=== PATIENT | female | born 1965 | race African-American/Black ===

== ENCOUNTER 2016-10-17 14:07 | Inpatient (IN) | payer SELFPAY ==
[~2016-10-17] VITALS: Ht 166.4 cm; Wt 73.5 kg
[~2016-10-17 14:07] MED LIST: ACET325T9 PO; ASPI-482 PO; HYDR25TA9 PO; LISI20TA PO; Metoprolol Tartrate PO
--- NOTE | 2016-10-17 15:24 | PHYS DOC ---
Past Medical History Past Medical History: Hypertension, Migraines, Other Additional Past Medical Histor: ENCEPHALOPATHY,KIDNEY Past Surgical History: Cholecystectomy Additional Information: 3 TO 4 CIGARETTES A DAY Alcohol Use: None Drug Use: None Adult General Chief Complaint Chief Complaint: FOOT INJURY PAIN HPI HPI Patient is a 51 year old female who presents with R foot pain, redness, swelling. Patient reports for the past 3 days she has had increasing pain in R foot. This sends shooting pains up her leg. There are two red patches on the foot as well. She denies any trauma or other inciting event. No fever. She took some ibuprofen for this with insufficient relief. She has not taken anything for it today. Patient reports one prior similar episode which resolved on its own without treatment. Review of Systems Review of Systems Constitutional: Denies fever or chills Respiratory: Denies cough or shortness of breath Cardiovascular: Denies chest pain GI: Denies abdominal pain, nausea, vomiting, or diarrhea Musculoskeletal: R foot pain, redness, swelling Neurologic: Denies headache, focal weakness or sensory changes Current Medications Current Medications Current Medications Medications (Trade) Dose Ordered Sig/Bam Start Time Stop Time Status Last Admin Dose Admin Acetaminophen/ Hydrocodone Bitart (Lortab 5/325) 2 tab 1X ONCE 10/17/16 15:30 10/17/16 15:31 DC 10/17/16 15:29 2 TAB Aspirin (Children'S Aspirin) 324 mg 1X ONCE 10/17/16 17:00 10/17/16 17:01 DC 10/17/16 17:15 324 MG Famotidine (Pepcid) 20 mg 1X ONCE 10/17/16 17:00 10/17/16 17:01 DC 10/17/16 17:15 20 MG Naproxen 500 mg 500 mg 1X ONCE 10/17/16 15:30 10/17/16 15:31 DC 10/17/16 15:30 500 MG Sodium Chloride (Iv Sodium Chloride 0.9% 1000ml Bag) 1,000 ml @ 1,000 mls/hr 1X ONCE 10/17/16 15:30 10/17/16 16:29 DC 10/17/16 15:43 1,000 MLS/HR Allergies Allergies Allergies Coded Allergies Type Severity Reaction Last Updated Verified No Known Drug Allergies 01/15/15 No Physical Exam Physical Exam Constitutional: Well developed, well nourished, no acute distress, non-toxic appearance HENT: Normocephalic, atraumatic, bilateral external ears normal Eyes: EOMI, conjunctiva normal, no discharge Neck: Normal range of motion, no stridor Cardiovascular: Heart rate normal, regular rhythm, no murmur Lungs & Thorax: Bilateral breath sounds clear to auscultation Abdomen: Bowel sounds normal, soft, non-distended, no TTP Skin: Warm, dry, no erythema, no rash Extremities: R foot mildly swollen compared to L; two patches of erythema on medial ankle and top of foot which are TTP; no bony deformity appreciated; motor function and sensation to light touch intact; 2+ DP pulse; RLE without significant swelling, no TTP in calf or thigh Neurologic: Alert and oriented X 3, no gross deficits noted Psychologic: Affect normal, judgement normal, mood normal Current Patient Data Vital Signs Vital Signs Date Time Temp Pulse Resp B/P Pulse Ox O2 Delivery O2 Flow Rate FiO2 10/17/16 17:20 60 16 144/86 96 10/17/16 16:30 Room Air 10/17/16 15:20 99.4 99.4 Lab Values Laboratory Tests Test 10/17/16 15:55 10/17/16 17:40 White Blood Count 6.1x10^3/uL (4.0-11.0) Red Blood Count 5.61x10^6/uL (3.50-5.40) H Hemoglobin 12.4g/dL (12.0-15.5) Hematocrit 39.3% (36.0-47.0) Mean Corpuscular Volume 70fL (79-100) L Mean Corpuscular Hemoglobin 22pg (25-35) L Mean Corpuscular Hemoglobin Concent 31g/dL (31-37) Red Cell Distribution Width 17.1% (11.5-14.5) H Platelet Count 263x10^3/uL (140-400) Neutrophils (%) (Auto) 57% (31-73) Lymphocytes (%) (Auto) 34% (24-48) Monocytes (%) (Auto) 8% (0-9) Eosinophils (%) (Auto) 1% (0-3) Basophils (%) (Auto) 1% (0-3) Neutrophils # (Auto) 3.5x10^3uL (1.8-7.7) Lymphocytes # (Auto) 2.1x10^3/uL (1.0-4.8) Monocytes # (Auto) 0.5x10^3/uL (0.0-1.1) Eosinophils # (Auto) 0.0x10^3/uL (0.0-0.7) Basophils # (Auto) 0.1x10^3/uL (0.0-0.2) Platelet Estimate Adequate (ADEQUATE) Polychromasia Slight Hypochromasia Mod Anisocytosis Slight Microcytosis Mod Target Cells Few Sodium Level 135mmol/L (136-145) L Potassium Level 3.5mmol/L (3.5-5.1) Chloride Level 101mmol/L (98-107) Carbon Dioxide Level 27mmol/L (21-32) Anion Gap 7 (6-14) Blood Urea Nitrogen 11mg/dL (7-20) Creatinine 0.7mg/dL (0.6-1.0) Estimated GFR (Cockcroft-Gault) 106.3 Glucose Level 92mg/dL (70-99) Lactic Acid Level 1.1mmol/L (0.4-2.0) Calcium Level 7.9mg/dL (8.5-10.1) L Total Bilirubin 0.2mg/dL (0.2-1.0) Direct Bilirubin < 0.1mg/dL (0.0-0.2) Aspartate Amino Transferase (AST) 19U/L (15-37) Alanine Aminotransferase (ALT) 17U/L (14-59) Alkaline Phosphatase 54U/L (46-116) Troponin I Quantitative 0.033ng/mL (0.000-0.055) 0.038ng/mL (0.000-0.055) Total Protein 5.3g/dL (6.4-8.2) L Albumin 2.3g/dL (3.4-5.0) L Lipase 64U/L (73-393) L Laboratory Tests 10/17/16 15:55 Laboratory Tests 10/17/16 15:55 EKG EKG EKG (my read): sinus rhythm, rate 64, LAD, IVCD, few new TWI, ST depression lateral leads; change from prior EKG Radiology/Procedures Radiology/Procedures CXR (my read): No acute abnormality LLE US: Impression: No evidence of deep venous thrombosis identified in the visualized right lower extremity venous system. X-ray L foot: IMPRESSION: No acute bony abnormality is detected. Course & Med Decision Making Course & Med Decision Making Pertinent Labs and Imaging studies reviewed. (See chart for details) Patient is 51 year old female who presents with foot pain and swelling. Possibly gout vs mild cellulitis. Patient hypotensive on arrival, which responded well to IV fluids. Foot x-ray, LLE US, labs ordered to evaluate. Initial labs largely unremarkable, imaging results as above. Right after these results came back, patient began complaining of epigastric pain radiating to her back; she denies SOB. EKG obtained, which is different than prior. Troponin , hepatic panel, lipase ordered as well. Patient given ASA, pepcid, GI cocktail , morphine. I quickly spoke with Dr. Crabtree, who kindly came right down to the ED to look at EKG and speak with patient. Per Dr. Crabtree, EKG shows new LBBB. We will admit her to hospitalist service and will trend troponin. Discussed this with patient, who reports pain significantly improved after meds. Discussed with Dr. Ni, will admit under her care for further evaluation and treatment. Dose of keflex ordered to cover for possible mild cellulitis. Dragon Disclaimer Dragon Disclaimer This electronic medical record was generated, in whole or in part, using a voice recognition dictation system. Departure Departure Impression: Primary Impression: Epigastric abdominal pain Additional Impression: EKG abnormality Disposition: ADMITTED INPATIENT Admitting Physician: Other Condition: GUARDED Referrals: SEFERINO MENDOZA (PCP) Problem Qualifiers DONELL RIOS MD Oct 17, 2016 15:24
[2016-10-17] MEDS ORDERED: HYDROCODONE/APAP 5/325MG TABLET. PO ONE (15:30)
[2016-10-17] MEDS ORDERED: IV NORMAL SALINE 1000ML BAG 1,000 ML IV ONE (15:30)
[2016-10-17] MEDS ORDERED: NAPROXEN 500 MG TABLET PO ONE (15:30)
--- NOTE | 2016-10-17 15:41 | RAD ---
Right foot, 3 views, 10/17/2016: History: Foot pain No fracture or dislocation is identified. There is mild degenerative change at the calcaneocuboid articulation. There is moderate generalized subcutaneous edema. IMPRESSION: No acute bony abnormality is detected.
[2016-10-17 16:13] LABS: BASO # 0.1 x10^3/uL (0.0-0.2); BASO % 1 % (0-3); EOS % 1 % (0-3); HEMATOCRIT 39.3 % (36.0-47.0); HEMOGLOBIN 12.4 g/dL (12.0-15.5); LYMPH # 2.1 x10^3/uL (1.0-4.8); LYMPH % 34 % (24-48); MEAN CORPUSCULAR HEMOGLOBIN 22 pg (25-35); MEAN CORPUSCULAR HGB CONC 31 g/dL (31-37); MEAN CORPUSCULAR VOLUME 70 fL (79-100); MONO % 8 % (0-9); NEUT % 57 % (31-73); PLATELET COUNT 263 x10^3/uL (140-400); RED BLOOD COUNT 5.61 x10^6/uL (3.50-5.40); RED CELL DISTRIBUTION WIDTH 17.1 % (11.5-14.5); WHITE BLOOD COUNT 6.1 x10^3/uL (4.0-11.0)
--- NOTE | 2016-10-17 16:27 | RAD ---
Examination: Ultrasound right lower extremity venous duplex History: History of right leg pain, swelling Comparison: None available Technique: Grayscale, color-flow 2-D, spectral waveform analysis of the right lower extremity venous system were performed Findings: The visualized common femoral vein, superficial femoral vein, popliteal vein demonstrate normal compression augmentation of flow. The visualized calf veins are patent. Impression: No evidence of deep venous thrombosis identified in the visualized right lower extremity venous system.
[2016-10-17 16:30] LABS: CALCIUM 7.9 mg/dL (8.5-10.1); CREATININE 0.7 mg/dL (0.6-1.0); GFR 106.3; POTASSIUM 3.5 mmol/L (3.5-5.1)
[2016-10-17 16:49] LABS: ANISOCYTOSIS SLIGHT; HYPOCHROMIA MOD; MICROCYTOSIS MOD; PLT ESTIMATE ADEQUATE (ADEQUATE); POLYCHROMASIA SLIGHT; TARGET CELLS FEW
[2016-10-17] MEDS ORDERED: ASPIRIN 81 MG TAB.CHEW PO ONE (17:00)
[2016-10-17] MEDS ORDERED: FAMOTIDINE 20 MG/2 ML VIAL IVP ONE (17:00)
--- NOTE | 2016-10-17 17:13 | EKG ---
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
[2016-10-17 17:24] LABS: ALBUMIN 2.3 g/dL (3.4-5.0); ALK PHOS 54 U/L (46-116); ALT (SGPT) 17 U/L (14-59); AST (SGOT) 19 U/L (15-37); DIRECT BILIRUBIN < 0.1 mg/dL (0.0-0.2); TOTAL BILIRUBIN 0.2 mg/dL (0.2-1.0); TOTAL PROTEIN 5.3 g/dL (6.4-8.2)
[2016-10-17] MEDS: MORPHINE SULFATE 4 MG/ML DISP.SYRIN. IV PRN (17:58)
[2016-10-17] MEDS ORDERED: LIDO:MAALOX:DONNATAL 1:1:1 15 ML SINGLE DOSE SWSW ONE (18:00)
[2016-10-17] MEDS ORDERED: ONDANSETRON PF 4 MG/2 ML VIAL. IV PRN (18:00)
[2016-10-17] MEDS ORDERED: ACETAMINOPHEN 325 MG TABLET. PO PRN ×2 (18:00→22:45)
[2016-10-17] MEDS ORDERED: CEPHALEXIN 250 MG CAPSULE PO ONE (18:00)
[2016-10-17] MEDS ORDERED: NITROGLYCERIN SUBLINGUAL 0.4 MG BOTTLE OF 25. SL PRN (18:00)
[2016-10-17 20:16] VITALS: BP 133/70
[2016-10-17] MEDS: LISINOPRIL 20 MG TABLET PO SCH (22:09)
[2016-10-17] MEDS: METOPROLOL TART IMMED RELEASE 25 MG TABLET PO SCH (22:09)
[2016-10-17 22:41] VITALS: BP 125/74
[2016-10-17] MEDS ORDERED: hydrALAZINE 20 MG/ML VIAL. IVP PRN (22:45)
[2016-10-17] MEDS ORDERED: COLCHICINE 0.6 MG TABLET PO ONE (23:00)
--- NOTE | 2016-10-17 23:32 | HP ---
ADMIT DATE: 10/17/2016 CHIEF COMPLAINT: Foot pain. HISTORY OF PRESENT ILLNESS: The patient is a 51-year-old -[place] woman, who presented with right foot pain for several days. She had noted redness and swelling in her right ankle, both medial as well as lateral aspects. This was quite painful. She had this occurrence for the past 3 days. She relates that she does have a history of pain in other foot as well. She took some ibuprofen for this, which did not really help pretty much for this. She does have a family history of gout. In the Emergency Room however, she started complaining of epigastric pain radiating all the way through to her back without any shortness of breath. She thinks that she has a history of something going on with her esophagus as she was told in the s. An EKG was obtained however and this showed changes, although nonspecific. These include a new left bundle-branch block. A decision was therefore made to admit her to the hospital to rule out MO and have Cardiology (Dr. Cisse) see her in the morning. She does have an atrial septal defect found by an echocardiogram in 2014. PAST MEDICAL HISTORY: Septal defect as above, hypertension, suspected arthrosclerotic renal artery stenosis, and GERD. FAMILY HISTORY: Multiple family members with gout. SOCIAL HISTORY: Lives by herself. Smokes about 4-5 cigarettes a day, weaning down from a 6-joqc-s-day history. Denies any drug or alcohol use. ALLERGIES: No known drug allergies. MEDICATIONS: MAR reconciled with home medications. REVIEW OF SYSTEMS: Positive as per HPI. PHYSICAL EXAMINATION: VITAL SIGNS: From today, show blood pressure of 133/70, heart rate of 60, and respiratory rate 16. She is afebrile. GENERAL: This is a well-nourished 51-year-old -[place] woman, alert and oriented, in no acute distress. HEENT: Shows no scleral icterus. NECK: Supple without any lymphadenopathy. LUNGS: Clear to auscultation bilaterally. CARDIOVASCULAR: Regular rate and rhythm. ABDOMEN: Has positive bowel sounds, soft, minimal tenderness in the subxiphoid/epigastric area. No organomegaly or masses appreciated. EXTREMITIES: Show no edema and no clubbing. There is erythema on the medial as well as lateral side of her right malleolus, worse on the medial side. Tenderness to touch. SKIN: Warm, soft, and dry. LABORATORY DATA: CBC with a WBC of 6.1, hemoglobin 12.6, and platelets of 263. Of note, MCV is 70. Chemistries with a BUN and creatinine of 11 and 0.7, normal electrolytes. LFTs within normal. Troponin at 0.033 and 0.038. RADIOGRAPHIC IMAGING: Chest x-ray from the Emergency Room reviewed by myself shows no acute cardiothoracic abnormalities. ASSESSMENT AND PLAN: The patient is a 51-year-old -[place] woman with right ankle pain, signs and symptoms consistent with gout. We will obtain uric acid levels in the morning. I will start her on colchicine for the acute flare. The patient does have EKG changes, which prompted the admission tonight. We will obtain serial enzymes and EKGs. Dr. 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 The patient does have a history of gastroesophageal reflux disease. We will start H2 blockers tonight. She has gotten significant doses of narcotics through the Emergency Room and is a bit sleepy currently, but at least, the pain has resolved. We will monitor further symptoms. We will obtain additional labs including lipid profile to risk stratify her for cardiac disease. SAVI ANGELES MD DR: BJORN/nts JOB#: [id number] / [id number] MAYRA
[2016-10-18] VITALS (18 sets, daily range): BP systolic 105–160; BP diastolic 61–84
[2016-10-18] MEDS: FAMOTIDINE 20 MG TABLET. PO SCH ×3 (07:10→20:20)
[2016-10-18 07:56] LABS: CALCIUM 8.1 mg/dL (8.5-10.1); CREATININE 0.8 mg/dL (0.6-1.0); GFR 91.1; URIC ACID 4.7 mg/dL (2.6-6.0)
[2016-10-18 07:58] LABS: BASO % 1 % (0-3); EOS % 2 % (0-3); HEMATOCRIT 36.8 % (36.0-47.0); HEMOGLOBIN 11.5 g/dL (12.0-15.5); LYMPH % 41 % (24-48); MEAN CORPUSCULAR HEMOGLOBIN 22 pg (25-35); MEAN CORPUSCULAR HGB CONC 31 g/dL (31-37); MEAN CORPUSCULAR VOLUME 71 fL (79-100); MONO % 11 % (0-9); NEUT % 46 % (31-73); PLATELET COUNT 245 x10^3/uL (140-400); RED CELL DISTRIBUTION WIDTH 17.7 % (11.5-14.5); WHITE BLOOD COUNT 4.8 x10^3/uL (4.0-11.0)
[2016-10-18 08:00] LABS: CHOLESTEROL/HDL RATIO 6.9
--- NOTE | 2016-10-18 08:54 | RAD ---
Indication: Epigastric pain. Hypertension. Technique: Upright portable chest radiograph was obtained. No comparison is available. Findings: The lungs are clear. The cardiopulmonary silhouette is within normal limits. The bony structures are intact. Impression: No active pulmonary disease.
[2016-10-18] MEDS: ASPIRIN ENTERIC COATED 81 MG TABLET.DR. PO SCH (08:57)
[2016-10-18] MEDS: METOPROLOL TART IMMED RELEASE 25 MG TABLET PO SCH ×2 (08:57→20:40)
[2016-10-18] MEDS: LISINOPRIL 20 MG TABLET PO SCH ×2 (08:57→20:21)
[2016-10-18] MEDS: HYDROCHLOROTHIAZIDE 25 MG TABLET PO SCH (08:57)
[2016-10-18] MEDS: COLCHICINE 0.6 MG TABLET PO SCH (08:57)
[2016-10-18] MEDS: MORPHINE SULFATE 4 MG/ML DISP.SYRIN. IV PRN (08:58)
--- NOTE | 2016-10-18 10:12 | PDOC ---
PROGRESS NOTES Chief Complaint Chief Complaint CC: Foot pain A/P Right foot pain, KEG changes? LBBB Mild elevation of troponin HTN Plan angiogram today by Dr Cisse, no active chest pain colchicine HTN stable AC per cardiology, d/w RN Labs reviwed, Vitals Vitals Vital Signs Date Time Temp Pulse Resp B/P Pulse Ox O2 Delivery O2 Flow Rate FiO2 10/18/16 09:58 16 100 Room Air 10/18/16 08:57 54 123/69 10/18/16 07:00 98.4 98.4 Physical Exam General: Alert, Oriented X3 Heart: Normal S1, Normal S2 Lungs: Clear Abdomen: Normal bowel sounds Extremities: No clubbing Labs LABS Laboratory Tests Test 10/17/16 15:55 10/17/16 17:40 10/18/16 00:30 10/18/16 07:05 White Blood Count 6.1x10^3/uL (4.0-11.0) 4.8x10^3/uL (4.0-11.0) Red Blood Count 5.61x10^6/uL (3.50-5.40) 5.20x10^6/uL (3.50-5.40) Hemoglobin 12.4g/dL (12.0-15.5) 11.5g/dL (12.0-15.5) Hematocrit 39.3% (36.0-47.0) 36.8% (36.0-47.0) Mean Corpuscular Volume 70fL (79-100) 71fL (79-100) Mean Corpuscular Hemoglobin 22pg (25-35) 22pg (25-35) Mean Corpuscular Hemoglobin Concent 31g/dL (31-37) 31g/dL (31-37) Red Cell Distribution Width 17.1% (11.5-14.5) 17.7% (11.5-14.5) Platelet Count 263x10^3/uL (140-400) 245x10^3/uL (140-400) Neutrophils (%) (Auto) 57% (31-73) 46% (31-73) Lymphocytes (%) (Auto) 34% (24-48) 41% (24-48) Monocytes (%) (Auto) 8% (0-9) 11% (0-9) Eosinophils (%) (Auto) 1% (0-3) 2% (0-3) Basophils (%) (Auto) 1% (0-3) 1% (0-3) Neutrophils # (Auto) 3.5x10^3uL (1.8-7.7) 2.2x10^3uL (1.8-7.7) Lymphocytes # (Auto) 2.1x10^3/uL (1.0-4.8) 2.0x10^3/uL (1.0-4.8) Monocytes # (Auto) 0.5x10^3/uL (0.0-1.1) 0.5x10^3/uL (0.0-1.1) Eosinophils # (Auto) 0.0x10^3/uL (0.0-0.7) 0.1x10^3/uL (0.0-0.7) Basophils # (Auto) 0.1x10^3/uL (0.0-0.2) 0.0x10^3/uL (0.0-0.2) Platelet Estimate Adequate (ADEQUATE) Polychromasia Slight Hypochromasia Mod Anisocytosis Slight Microcytosis Mod Target Cells Few Sodium Level 135mmol/L (136-145) 140mmol/L (136-145) Potassium Level 3.5mmol/L (3.5-5.1) 4.0mmol/L (3.5-5.1) Chloride Level 101mmol/L (98-107) 106mmol/L (98-107) Carbon Dioxide Level 27mmol/L (21-32) 28mmol/L (21-32) Anion Gap 7 (6-14) 6 (6-14) Blood Urea Nitrogen 11mg/dL (7-20) 9mg/dL (7-20) Creatinine 0.7mg/dL (0.6-1.0) 0.8mg/dL (0.6-1.0) Estimated GFR (Cockcroft-Gault) 106.3 91.1 Glucose Level 92mg/dL (70-99) 80mg/dL (70-99) Lactic Acid Level 1.1mmol/L (0.4-2.0) Calcium Level 7.9mg/dL (8.5-10.1) 8.1mg/dL (8.5-10.1) Total Bilirubin 0.2mg/dL (0.2-1.0) Direct Bilirubin < 0.1mg/dL (0.0-0.2) Aspartate Amino Transf (AST/SGOT) 19U/L (15-37) Alanine Aminotransferase (ALT/SGPT) 17U/L (14-59) Alkaline Phosphatase 54U/L (46-116) Troponin I Quantitative 0.033ng/mL (0.000-0.055) 0.038ng/mL (0.000-0.055) 0.052ng/mL (0.000-0.055) 0.044ng/mL (0.000-0.055) Total Protein 5.3g/dL (6.4-8.2) Albumin 2.3g/dL (3.4-5.0) Lipase 64U/L (73-393) Uric Acid 4.7mg/dL (2.6-6.0) Triglycerides Level 103mg/dL (0-150) Cholesterol Level 144mg/dL (0-200) LDL Cholesterol, Calculated 102mg/dL (0-100) VLDL Cholesterol, Calculated 21mg/dL (0-40) HDL Cholesterol 21mg/dL (40-60) Cholesterol/HDL Ratio 6.9 Assessment and Plan Assessmemt and Plan Problems Medical Problems: (1) EKG abnormality Status: Acute (2) Epigastric abdominal pain Status: Acute Problems: Comment Review of Relevant I have reviewed the following items kenji (where applicable) has been applied. Labs Laboratory Tests Test 10/17/16 15:55 10/17/16 17:40 10/18/16 00:30 10/18/16 07:05 White Blood Count 6.1x10^3/uL (4.0-11.0) 4.8x10^3/uL (4.0-11.0) Red Blood Count 5.61x10^6/uL (3.50-5.40) 5.20x10^6/uL (3.50-5.40) Hemoglobin 12.4g/dL (12.0-15.5) 11.5g/dL (12.0-15.5) Hematocrit 39.3% (36.0-47.0) 36.8% (36.0-47.0) Mean Corpuscular Volume 70fL (79-100) 71fL (79-100) Mean Corpuscular Hemoglobin 22pg (25-35) 22pg (25-35) Mean Corpuscular Hemoglobin Concent 31g/dL (31-37) 31g/dL (31-37) Red Cell Distribution Width 17.1% (11.5-14.5) 17.7% (11.5-14.5) Platelet Count 263x10^3/uL (140-400) 245x10^3/uL (140-400) Neutrophils (%) (Auto) 57% (31-73) 46% (31-73) Lymphocytes (%) (Auto) 34% (24-48) 41% (24-48) Monocytes (%) (Auto) 8% (0-9) 11% (0-9) Eosinophils (%) (Auto) 1% (0-3) 2% (0-3) Basophils (%) (Auto) 1% (0-3) 1% (0-3) Neutrophils # (Auto) 3.5x10^3uL (1.8-7.7) 2.2x10^3uL (1.8-7.7) Lymphocytes # (Auto) 2.1x10^3/uL (1.0-4.8) 2.0x10^3/uL (1.0-4.8) Monocytes # (Auto) 0.5x10^3/uL (0.0-1.1) 0.5x10^3/uL (0.0-1.1) Eosinophils # (Auto) 0.0x10^3/uL (0.0-0.7) 0.1x10^3/uL (0.0-0.7) Basophils # (Auto) 0.1x10^3/uL (0.0-0.2) 0.0x10^3/uL (0.0-0.2) Platelet Estimate Adequate (ADEQUATE) Polychromasia Slight Hypochromasia Mod Anisocytosis Slight Microcytosis Mod Target Cells Few Sodium Level 135mmol/L (136-145) 140mmol/L (136-145) Potassium Level 3.5mmol/L (3.5-5.1) 4.0mmol/L (3.5-5.1) Chloride Level 101mmol/L (98-107) 106mmol/L (98-107) Carbon Dioxide Level 27mmol/L (21-32) 28mmol/L (21-32) Anion Gap 7 (6-14) 6 (6-14) Blood Urea Nitrogen 11mg/dL (7-20) 9mg/dL (7-20) Creatinine 0.7mg/dL (0.6-1.0) 0.8mg/dL (0.6-1.0) Estimated GFR (Cockcroft-Gault) 106.3 91.1 Glucose Level 92mg/dL (70-99) 80mg/dL (70-99) Lactic Acid Level 1.1mmol/L (0.4-2.0) Calcium Level 7.9mg/dL (8.5-10.1) 8.1mg/dL (8.5-10.1) Total Bilirubin 0.2mg/dL (0.2-1.0) Direct Bilirubin < 0.1mg/dL (0.0-0.2) Aspartate Amino Transf (AST/SGOT) 19U/L (15-37) Alanine Aminotransferase (ALT/SGPT) 17U/L (14-59) Alkaline Phosphatase 54U/L (46-116) Troponin I Quantitative 0.033ng/mL (0.000-0.055) 0.038ng/mL (0.000-0.055) 0.052ng/mL (0.000-0.055) 0.044ng/mL (0.000-0.055) Total Protein 5.3g/dL (6.4-8.2) Albumin 2.3g/dL (3.4-5.0) Lipase 64U/L (73-393) Uric Acid 4.7mg/dL (2.6-6.0) Triglycerides Level 103mg/dL (0-150) Cholesterol Level 144mg/dL (0-200) LDL Cholesterol, Calculated 102mg/dL (0-100) VLDL Cholesterol, Calculated 21mg/dL (0-40) HDL Cholesterol 21mg/dL (40-60) Cholesterol/HDL Ratio 6.9 Laboratory Tests Test 10/17/16 15:55 10/17/16 17:40 10/18/16 00:30 10/18/16 07:05 White Blood Count 6.1x10^3/uL (4.0-11.0) 4.8x10^3/uL (4.0-11.0) Red Blood Count 5.61x10^6/uL (3.50-5.40) 5.20x10^6/uL (3.50-5.40) Hemoglobin 12.4g/dL (12.0-15.5) 11.5g/dL (12.0-15.5) Hematocrit 39.3% (36.0-47.0) 36.8% (36.0-47.0) Mean Corpuscular Volume 70fL (79-100) 71fL (79-100) Mean Corpuscular Hemoglobin 22pg (25-35) 22pg (25-35) Mean Corpuscular Hemoglobin Concent 31g/dL (31-37) 31g/dL (31-37) Red Cell Distribution Width 17.1% (11.5-14.5) 17.7% (11.5-14.5) Platelet Count 263x10^3/uL (140-400) 245x10^3/uL (140-400) Neutrophils (%) (Auto) 57% (31-73) 46% (31-73) Lymphocytes (%) (Auto) 34% (24-48) 41% (24-48) Monocytes (%) (Auto) 8% (0-9) 11% (0-9) Eosinophils (%) (Auto) 1% (0-3) 2% (0-3) Basophils (%) (Auto) 1% (0-3) 1% (0-3) Neutrophils # (Auto) 3.5x10^3uL (1.8-7.7) 2.2x10^3uL (1.8-7.7) Lymphocytes # (Auto) 2.1x10^3/uL (1.0-4.8) 2.0x10^3/uL (1.0-4.8) Monocytes # (Auto) 0.5x10^3/uL (0.0-1.1) 0.5x10^3/uL (0.0-1.1) Eosinophils # (Auto) 0.0x10^3/uL (0.0-0.7) 0.1x10^3/uL (0.0-0.7) Basophils # (Auto) 0.1x10^3/uL (0.0-0.2) 0.0x10^3/uL (0.0-0.2) Platelet Estimate Adequate (ADEQUATE) Polychromasia Slight Hypochromasia Mod Anisocytosis Slight Microcytosis Mod Target Cells Few Sodium Level 135mmol/L (136-145) 140mmol/L (136-145) Potassium Level 3.5mmol/L (3.5-5.1) 4.0mmol/L (3.5-5.1) Chloride Level 101mmol/L (98-107) 106mmol/L (98-107) Carbon Dioxide Level 27mmol/L (21-32) 28mmol/L (21-32) Anion Gap 7 (6-14) 6 (6-14) Blood Urea Nitrogen 11mg/dL (7-20) 9mg/dL (7-20) Creatinine 0.7mg/dL (0.6-1.0) 0.8mg/dL (0.6-1.0) Estimated GFR (Cockcroft-Gault) 106.3 91.1 Glucose Level 92mg/dL (70-99) 80mg/dL (70-99) Lactic Acid Level 1.1mmol/L (0.4-2.0) Calcium Level 7.9mg/dL (8.5-10.1) 8.1mg/dL (8.5-10.1) Total Bilirubin 0.2mg/dL (0.2-1.0) Direct Bilirubin < 0.1mg/dL (0.0-0.2) Aspartate Amino Transf (AST/SGOT) 19U/L (15-37) Alanine Aminotransferase (ALT/SGPT) 17U/L (14-59) Alkaline Phosphatase 54U/L (46-116) Troponin I Quantitative 0.033ng/mL (0.000-0.055) 0.038ng/mL (0.000-0.055) 0.052ng/mL (0.000-0.055) 0.044ng/mL (0.000-0.055) Total Protein 5.3g/dL (6.4-8.2) Albumin 2.3g/dL (3.4-5.0) Lipase 64U/L (73-393) Uric Acid 4.7mg/dL (2.6-6.0) Triglycerides Level 103mg/dL (0-150) Cholesterol Level 144mg/dL (0-200) LDL Cholesterol, Calculated 102mg/dL (0-100) VLDL Cholesterol, Calculated 21mg/dL (0-40) HDL Cholesterol 21mg/dL (40-60) Cholesterol/HDL Ratio 6.9 Medications Current Medications Acetaminophen/ Hydrocodone Bitart (Lortab 5/325) 2 tab 1X ONCE PO Last administered on 10/17/16 15:29; Start 10/17/16 at 15:30; Stop 10/17/16 at 15:31 ; Status DC Naproxen 500 mg 500 mg 1X ONCE PO Last administered on 10/17/16 15:30; Start 10/17/16 at 15:30; Stop 10/17/16 at 15:31; Status DC Sodium Chloride (Iv Sodium Chloride 0.9% 1000ml Bag) 1,000 ml @ 1,000 mls/hr 1X ONCE IV Last administered on 10/17/16 15:43; Start 10/17/16 at 15:30; Stop 10/17/16 at 16:29; Status DC Famotidine (Pepcid) 20 mg 1X ONCE IVP Last administered on 10/17/16 17:15; Start 10/17/16 at 17:00; Stop 10/17/16 at 17:01; Status DC Aspirin (Children'S Aspirin) 324 mg 1X ONCE PO Last administered on 10/17/16 17:15; Start 10/17/16 at 17:00; Stop 10/17/16 at 17:01; Status DC Ondansetron HCl (Zofran) 4 mg PRN Q8HRS PRN IV NAUSEA/VOMITING Last administered on 10/18/16 08:59; Start 10/17/16 at 18:00; Stop 10/18/16 at 17:59 Morphine Sulfate 4 mg PRN Q2HR PRN IV PAIN Last administered on 10/18/16 08:58 ; Start 10/17/16 at 18:00; Stop 10/18/16 at 17:59 Acetaminophen (Tylenol) 650 mg PRN Q4HRS PRN PO FEVER; Start 10/17/16 at 18:00 ; Stop 10/17/16 at 22:45; Status DC Nitroglycerin (Nitrostat) 0.4 mg PRN Q5MIN PRN SL CHEST PAIN; Start 10/17/16 at 18:00; Stop 10/18/16 at 17:59 Multi-Ingredient Mouthwash/Gargle (Gi Cocktail Single Dose) 15 ml 1X ONCE SWSW Last administered on 10/17/16 17:59; Start 10/17/16 at 18:00; Stop 10/17/16 at 18:01; Status DC Cephalexin HCl (Keflex) 500 mg 1X ONCE PO Last administered on 10/17/16 18:49 ; Start 10/17/16 at 18:00; Stop 10/17/16 at 18:01; Status DC Lisinopril (Prinivil) 20 mg BID PO Last administered on 10/18/16 08:57; Start 10/17/16 at 23:00 Metoprolol Tartrate (Lopressor) 25 mg BID PO Last administered on 10/18/16 08: 57; Start 10/17/16 at 23:00 Acetaminophen (Tylenol) 650 mg PRN Q4HRS PRN PO HEADACHE; Start 10/17/16 at 22: 45 Aspirin (Ecotrin) 81 mg DAILY PO Last administered on 10/18/16 08:57; Start at 09:00 Hydrochlorothiazide (Hydrodiuril) 25 mg DAILY PO Last administered on 08:57; Start 10/18/16 at 09:00 Famotidine (Pepcid) 20 mg BID PO Last administered on 10/18/16 08:57; Start at 23:00 Hydralazine HCl (Apresoline) 10 mg PRN Q4HRS PRN IVP ELEVATED BP, SEE COMMENTS ; Start 10/17/16 at 22:45 Colchicine (Colcrys) 0.6 mg DAILY PO Last administered on 10/18/16 08:57; Start 10/18/16 at 09:00 Colchicine (Colcrys) 0.6 mg 1X ONCE PO ; Start 10/17/16 at 23:00; Stop at 23:01; Status DC Active Scripts Active Tylenol (Acetaminophen) 325 Mg Tablet 325 Mg PO PRN Q6-8HRS PRN [Metoprolol Tartrate] 25 MG Tablet 25 Mg PO BID 30 Days Prinivil (Lisinopril) 20 Mg Tablet 20 Mg PO BID 30 Days Reported Aspir 81 (Aspirin) 81 Mg Tablet. 1 Tab PO DAILY Hydrochlorothiazide Tablet (Hydrochlorothiazide) 25 Mg Tablet 1 Tab PO DAILY Vitals/I & O Vital Sign - Last 24 Hours 10/17/16 10/17/16 10/17/16 10/17/16 14:19 15:20 15:29 15:30 Temp 97.6 99.4 97.6 99.4 Pulse 75 75 66 Resp 18 20 16 16 B/P 85/51 87/50 85/51 Pulse Ox 97 98 97 O2 Delivery Room Air Room Air Room Air 10/17/16 10/17/16 10/17/16 10/17/16 15:53 15:55 16:20 16:30 Pulse 61 57 55 64 Resp 16 16 B/P 79/53 81/51 82/51 136/83 Pulse Ox 97 96 94 94 O2 Delivery Room Air Room Air Room Air Room Air 10/17/16 10/17/16 10/17/16 10/17/16 17:20 17:58 19:59 20:16 Temp 97.8 97.8 Pulse 60 60 Resp 16 16 B/P 144/86 133/70 Pulse Ox 96 99 O2 Delivery Room Air Room Air 10/17/16 10/17/16 10/17/16 10/18/16 22:09 22:09 22:41 02:34 Temp 97.6 97.9 97.6 97.9 Pulse 60 60 56 50 Resp 16 B/P 133/70 133/70 125/74 121/66 Pulse Ox 100 100 O2 Delivery Room Air Room Air 10/18/16 10/18/16 10/18/16 10/18/16 07:00 08:00 08:57 08:57 Temp 98.4 98.4 Pulse 54 54 54 B/P 123/69 123/69 123/69 Pulse Ox 100 O2 Delivery Room Air Room Air 10/18/16 10/18/16 08:58 09:58 Resp 18 16 Pulse Ox 100 100 O2 Delivery Room Air Room Air Intake and Output 10/17/16 10/17/16 10/18/16 15:00 23:00 07:00 Intake Total 1000 ml Balance 1000 ml ELKE BOWDEN MD Oct 18, 2016 10:12
--- NOTE | 2016-10-18 11:41 | EKG ---
[facility] [address] [place] [address] Test Date: 2016-10-18 Test Time: 10:34:43 Pat Name: COCO CHIANG Department: Room: 269 1 Gender: F Research Fellow: : 1965 Requested By: CHICHO JOHNSON Order Number: [id number] Reading MD: Paloma Alcantar Measurements Intervals [place] Rate: 46 P: 41 TX: 216 QRS: -15 QRSD: 144 T: 121 QT: 576 QTc: 505 Interpretive Statements SINUS BRADYCARDIA LEFTWARD AXIS NON SPECIFIC INTRAVENTRICULAR BLOCK INVERTED T WAVES CONSIDER MYOCARDIAL ISCHEMIA ABNORMAL ECG Electronically Signed On 10-19-2016 15:10:49 CDT by Paloma Alcantar
[2016-10-18] MEDS ORDERED: IOHEXOL 300 MG/ML 100ML VIAL. ONE (12:31)
[2016-10-18] MEDS ORDERED: LIDOCAINE 2% 20 ML VIAL. ONE ×2 (12:31→13:15)
--- NOTE | 2016-10-18 12:53 | PDOC2 ---
CONSULT Date of Consult Date of Consult DATE: 10/18/16 TIME: 12:47 Reason for Consult Reason for Consult: Chest pain Identification/Chief Complaint Chief Complaint Chest pain History of Present Illness Reason for Visit: Pt is a pleasant 51 y o Lady that has a rate dependant LBBB and an aneurism of the atrial septum. She comes in with ankle pain but then started to complain about L sided chest pains. The EKG show a LBBB and the troponin is 0.052. The pt continues to have chest pains now. Past Medical History Cardiovascular: HTN Pulmonary: No pertinent hx GI: No pertinent hx Heme/Onc: No pertinent hx Hepatobiliary: No pertinent hx Psych: No pertinent hx Rheumatologic: No pertinent hx Infectious disease: No pertinent hx Renal/: No pertinent hx Endocrine: No pertinent hx Past Surgical History Past Surgical History: Cholecystectomy Family History Family History: Diabetes, Heart Disease, Hypertension, Other Social History ALCOHOL: occassional Drugs: None, Other Current Problem List Problem List Problems Medical Problems: (1) EKG abnormality Status: Acute (2) Epigastric abdominal pain Status: Acute Current Medications Current Medications Current Medications Acetaminophen/ Hydrocodone Bitart (Lortab 5/325) 2 tab 1X ONCE PO Last administered on 10/17/16 15:29; Start 10/17/16 at 15:30; Stop 10/17/16 at 15:31 ; Status DC Naproxen 500 mg 500 mg 1X ONCE PO Last administered on 10/17/16 15:30; Start 10/17/16 at 15:30; Stop 10/17/16 at 15:31; Status DC Sodium Chloride (Iv Sodium Chloride 0.9% 1000ml Bag) 1,000 ml @ 1,000 mls/hr 1X ONCE IV Last administered on 10/17/16 15:43; Start 10/17/16 at 15:30; Stop 10/17/16 at 16:29; Status DC Famotidine (Pepcid) 20 mg 1X ONCE IVP Last administered on 10/17/16 17:15; Start 10/17/16 at 17:00; Stop 10/17/16 at 17:01; Status DC Aspirin (Children'S Aspirin) 324 mg 1X ONCE PO Last administered on 10/17/16 17:15; Start 10/17/16 at 17:00; Stop 10/17/16 at 17:01; Status DC Ondansetron HCl (Zofran) 4 mg PRN Q8HRS PRN IV NAUSEA/VOMITING Last administered on 10/18/16 08:59; Start 10/17/16 at 18:00; Stop 10/18/16 at 17:59 Morphine Sulfate 4 mg PRN Q2HR PRN IV PAIN Last administered on 10/18/16 08:58 ; Start 10/17/16 at 18:00; Stop 10/18/16 at 17:59 Acetaminophen (Tylenol) 650 mg PRN Q4HRS PRN PO FEVER; Start 10/17/16 at 18:00 ; Stop 10/17/16 at 22:45; Status DC Nitroglycerin (Nitrostat) 0.4 mg PRN Q5MIN PRN SL CHEST PAIN; Start 10/17/16 at 18:00; Stop 10/18/16 at 17:59 Multi-Ingredient Mouthwash/Gargle (Gi Cocktail Single Dose) 15 ml 1X ONCE SWSW Last administered on 10/17/16 17:59; Start 10/17/16 at 18:00; Stop 10/17/16 at 18:01; Status DC Cephalexin HCl (Keflex) 500 mg 1X ONCE PO Last administered on 10/17/16 18:49 ; Start 10/17/16 at 18:00; Stop 10/17/16 at 18:01; Status DC Lisinopril (Prinivil) 20 mg BID PO Last administered on 10/18/16 08:57; Start 10/17/16 at 23:00 Metoprolol Tartrate (Lopressor) 25 mg BID PO Last administered on 10/18/16 08: 57; Start 10/17/16 at 23:00 Acetaminophen (Tylenol) 650 mg PRN Q4HRS PRN PO HEADACHE; Start 10/17/16 at 22: 45 Aspirin (Ecotrin) 81 mg DAILY PO Last administered on 10/18/16 08:57; Start at 09:00 Hydrochlorothiazide (Hydrodiuril) 25 mg DAILY PO Last administered on 08:57; Start 10/18/16 at 09:00 Famotidine (Pepcid) 20 mg BID PO Last administered on 10/18/16 08:57; Start at 23:00 Hydralazine HCl (Apresoline) 10 mg PRN Q4HRS PRN IVP ELEVATED BP, SEE COMMENTS ; Start 10/17/16 at 22:45 Colchicine (Colcrys) 0.6 mg DAILY PO Last administered on 10/18/16t 08:57; Start 10/18/16 at 09:00 Colchicine 0.6 mg 0.6 mg 1X ONCE PO ; Start 10/17/16 at 23:00; Stop 10/17/16 at 23:01; Status DC Heparin Sodium/ Sodium Chloride 1,000 ml @ As Directed STK-MED ONCE .ROUTE ; Start 10/18/16 at 12:30; Stop 10/18/16 at 12:31; Status DC Iohexol (Omnipaque 300 Mg/ml) 100 ml STK-MED ONCE .ROUTE ; Start 10/18/16 at 12: 31; Stop 10/18/16 at 12:32; Status DC Lidocaine HCl 20 ml STK-MED ONCE .ROUTE ; Start 10/18/16 at 12:31; Stop at 12:32; Status DC Active Scripts Active Tylenol (Acetaminophen) 325 Mg Tablet 325 Mg PO PRN Q6-8HRS PRN [Metoprolol Tartrate] 25 MG Tablet 25 Mg PO BID 30 Days Prinivil (Lisinopril) 20 Mg Tablet 20 Mg PO BID 30 Days Reported Aspir 81 (Aspirin) 81 Mg Tablet. 1 Tab PO DAILY Hydrochlorothiazide Tablet (Hydrochlorothiazide) 25 Mg Tablet 1 Tab PO DAILY Allergies Allergies: Coded Allergies: No Known Drug Allergies (Unverified , 01/15/15) Physical Exam General: Alert, Oriented X3, Cooperative HEENT: PERRLA Lungs: Clear to auscultation Heart: Regular rate, Normal S1, Normal S2 Abdomen: Normal bowel sounds, Soft Extremities: No edema Vitals VITALS Vital Signs Date Time Temp Pulse Resp B/P Pulse Ox O2 Delivery O2 Flow Rate FiO2 10/18/16 11:00 98.3 49 18 112/69 100 Room Air 98.3 Labs Labs Laboratory Tests Test 10/17/16 15:55 10/17/16 17:40 10/18/16 00:30 10/18/16 07:05 White Blood Count 6.1x10^3/uL (4.0-11.0) 4.8x10^3/uL (4.0-11.0) Red Blood Count 5.61x10^6/uL (3.50-5.40) 5.20x10^6/uL (3.50-5.40) Hemoglobin 12.4g/dL (12.0-15.5) 11.5g/dL (12.0-15.5) Hematocrit 39.3% (36.0-47.0) 36.8% (36.0-47.0) Mean Corpuscular Volume 70fL (79-100) 71fL (79-100) Mean Corpuscular Hemoglobin 22pg (25-35) 22pg (25-35) Mean Corpuscular Hemoglobin Concent 31g/dL (31-37) 31g/dL (31-37) Red Cell Distribution Width 17.1% (11.5-14.5) 17.7% (11.5-14.5) Platelet Count 263x10^3/uL (140-400) 245x10^3/uL (140-400) Neutrophils (%) (Auto) 57% (31-73) 46% (31-73) Lymphocytes (%) (Auto) 34% (24-48) 41% (24-48) Monocytes (%) (Auto) 8% (0-9) 11% (0-9) Eosinophils (%) (Auto) 1% (0-3) 2% (0-3) Basophils (%) (Auto) 1% (0-3) 1% (0-3) Neutrophils # (Auto) 3.5x10^3uL (1.8-7.7) 2.2x10^3uL (1.8-7.7) Lymphocytes # (Auto) 2.1x10^3/uL (1.0-4.8) 2.0x10^3/uL (1.0-4.8) Monocytes # (Auto) 0.5x10^3/uL (0.0-1.1) 0.5x10^3/uL (0.0-1.1) Eosinophils # (Auto) 0.0x10^3/uL (0.0-0.7) 0.1x10^3/uL (0.0-0.7) Basophils # (Auto) 0.1x10^3/uL (0.0-0.2) 0.0x10^3/uL (0.0-0.2) Platelet Estimate Adequate (ADEQUATE) Polychromasia Slight Hypochromasia Mod Anisocytosis Slight Microcytosis Mod Target Cells Few Sodium Level 135mmol/L (136-145) 140mmol/L (136-145) Potassium Level 3.5mmol/L (3.5-5.1) 4.0mmol/L (3.5-5.1) Chloride Level 101mmol/L (98-107) 106mmol/L (98-107) Carbon Dioxide Level 27mmol/L (21-32) 28mmol/L (21-32) Anion Gap 7 (6-14) 6 (6-14) Blood Urea Nitrogen 11mg/dL (7-20) 9mg/dL (7-20) Creatinine 0.7mg/dL (0.6-1.0) 0.8mg/dL (0.6-1.0) Estimated GFR (Cockcroft-Gault) 106.3 91.1 Glucose Level 92mg/dL (70-99) 80mg/dL (70-99) Lactic Acid Level 1.1mmol/L (0.4-2.0) Calcium Level 7.9mg/dL (8.5-10.1) 8.1mg/dL (8.5-10.1) Total Bilirubin 0.2mg/dL (0.2-1.0) Direct Bilirubin < 0.1mg/dL (0.0-0.2) Aspartate Amino Transf (AST/SGOT) 19U/L (15-37) Alanine Aminotransferase (ALT/SGPT) 17U/L (14-59) Alkaline Phosphatase 54U/L (46-116) Troponin I Quantitative 0.033ng/mL (0.000-0.055) 0.038ng/mL (0.000-0.055) 0.052ng/mL (0.000-0.055) 0.044ng/mL (0.000-0.055) Total Protein 5.3g/dL (6.4-8.2) Albumin 2.3g/dL (3.4-5.0) Lipase 64U/L (73-393) Uric Acid 4.7mg/dL (2.6-6.0) Triglycerides Level 103mg/dL (0-150) Cholesterol Level 144mg/dL (0-200) LDL Cholesterol, Calculated 102mg/dL (0-100) VLDL Cholesterol, Calculated 21mg/dL (0-40) HDL Cholesterol 21mg/dL (40-60) Cholesterol/HDL Ratio 6.9 Laboratory Tests Test 10/17/16 15:55 10/17/16 17:40 10/18/16 00:30 10/18/16 07:05 White Blood Count 6.1x10^3/uL (4.0-11.0) 4.8x10^3/uL (4.0-11.0) Red Blood Count 5.61x10^6/uL (3.50-5.40) 5.20x10^6/uL (3.50-5.40) Hemoglobin 12.4g/dL (12.0-15.5) 11.5g/dL (12.0-15.5) Hematocrit 39.3% (36.0-47.0) 36.8% (36.0-47.0) Mean Corpuscular Volume 70fL (79-100) 71fL (79-100) Mean Corpuscular Hemoglobin 22pg (25-35) 22pg (25-35) Mean Corpuscular Hemoglobin Concent 31g/dL (31-37) 31g/dL (31-37) Red Cell Distribution Width 17.1% (11.5-14.5) 17.7% (11.5-14.5) Platelet Count 263x10^3/uL (140-400) 245x10^3/uL (140-400) Neutrophils (%) (Auto) 57% (31-73) 46% (31-73) Lymphocytes (%) (Auto) 34% (24-48) 41% (24-48) Monocytes (%) (Auto) 8% (0-9) 11% (0-9) Eosinophils (%) (Auto) 1% (0-3) 2% (0-3) Basophils (%) (Auto) 1% (0-3) 1% (0-3) Neutrophils # (Auto) 3.5x10^3uL (1.8-7.7) 2.2x10^3uL (1.8-7.7) Lymphocytes # (Auto) 2.1x10^3/uL (1.0-4.8) 2.0x10^3/uL (1.0-4.8) Monocytes # (Auto) 0.5x10^3/uL (0.0-1.1) 0.5x10^3/uL (0.0-1.1) Eosinophils # (Auto) 0.0x10^3/uL (0.0-0.7) 0.1x10^3/uL (0.0-0.7) Basophils # (Auto) 0.1x10^3/uL (0.0-0.2) 0.0x10^3/uL (0.0-0.2) Platelet Estimate Adequate (ADEQUATE) Polychromasia Slight Hypochromasia Mod Anisocytosis Slight Microcytosis Mod Target Cells Few Sodium Level 135mmol/L (136-145) 140mmol/L (136-145) Potassium Level 3.5mmol/L (3.5-5.1) 4.0mmol/L (3.5-5.1) Chloride Level 101mmol/L (98-107) 106mmol/L (98-107) Carbon Dioxide Level 27mmol/L (21-32) 28mmol/L (21-32) Anion Gap 7 (6-14) 6 (6-14) Blood Urea Nitrogen 11mg/dL (7-20) 9mg/dL (7-20) Creatinine 0.7mg/dL (0.6-1.0) 0.8mg/dL (0.6-1.0) Estimated GFR (Cockcroft-Gault) 106.3 91.1 Glucose Level 92mg/dL (70-99) 80mg/dL (70-99) Lactic Acid Level 1.1mmol/L (0.4-2.0) Calcium Level 7.9mg/dL (8.5-10.1) 8.1mg/dL (8.5-10.1) Total Bilirubin 0.2mg/dL (0.2-1.0) Direct Bilirubin < 0.1mg/dL (0.0-0.2) Aspartate Amino Transf (AST/SGOT) 19U/L (15-37) Alanine Aminotransferase (ALT/SGPT) 17U/L (14-59) Alkaline Phosphatase 54U/L (46-116) Troponin I Quantitative 0.033ng/mL (0.000-0.055) 0.038ng/mL (0.000-0.055) 0.052ng/mL (0.000-0.055) 0.044ng/mL (0.000-0.055) Total Protein 5.3g/dL (6.4-8.2) Albumin 2.3g/dL (3.4-5.0) Lipase 64U/L (73-393) Uric Acid 4.7mg/dL (2.6-6.0) Triglycerides Level 103mg/dL (0-150) Cholesterol Level 144mg/dL (0-200) LDL Cholesterol, Calculated 102mg/dL (0-100) VLDL Cholesterol, Calculated 21mg/dL (0-40) HDL Cholesterol 21mg/dL (40-60) Cholesterol/HDL Ratio 6.9 Assessment/Plan Assessment/Plan Pt with chest pains and a LBBB that has a beauchamp zone troponin and the pain comes and goes. She is having pain now. We discussed the situation, options, risks and she wants to go for a Cath- Possible. Will take to the cath -lab now. Thank you CHICHO JOHNSON MD Oct 18, 2016 12:53
--- NOTE | 2016-10-18 12:54 | PDOC ---
MODERATE SEDATION ASSESSMENT RISKS/ALTERNATIVES Risks/Alternatives Risks and alternatives of this type of sedation and procedure discussed with: RISK/ALTERNATIVES: Patient H & P ON CHART H & P H & P on chart and reviewed for co-morbid conditions and appropriate labs. H&P ON CHART: Yes STATUS PREG STATUS ASSESSED: Yes MEDS/ALLERGIES REVIEWED Meds/Allergies Reviewed Medications and Allergies including time and route of recently administered narcotics and sedatives. MEDS/ALLERGIES REVIEWED: Yes ASA RATING ASA RATING: II AIRWAY ASSESSMENT Airway Assessment Airway patency, oral function limitations, presence of caps, crowns, dentures, partials, and ability to extend neck assessed. AIRWAY ASSESSMENT: Yes MALLAMPATI SCORE MALLAMPATI SCORE: II PRE-SEDATION ASSESSMENT PRE-SEDATION ASSESSMENT: Yes CHICHO JOHNSON MD Oct 18, 2016 12:54
[2016-10-18] MEDS ORDERED: FENTANYL PF 100 MCG/2 ML VIAL. ONE (13:01)
[2016-10-18] MEDS ORDERED: MIDAZOLAM HCL 2 MG/2 ML VIAL. ONE (13:02)
[2016-10-18] MEDS ORDERED: LIDOCAINE 2% 20 ML VIAL. IJ ONE (13:15)
[2016-10-18] MEDS ORDERED: MIDAZOLAM HCL 2 MG/2 ML VIAL. IV ONE (13:15)
[2016-10-18] MEDS ORDERED: IOHEXOL 300 MG/ML 100ML VIAL. IART ONE (13:15)
[2016-10-18] MEDS ORDERED: FENTANYL PF 100 MCG/2 ML VIAL. IV ONE (13:15)
--- NOTE | 2016-10-18 14:10 | PDOC4 ---
PROCEDURE Procedure PROCEDURE NOTE PROCEDURE: L HEART CATH WITH VENTRICULOGRAM PROCEDURE AFTER OBTAINING INFORMED CONSENT PT TAKEN TO THE REGULATOR INSPECTOR. GROINS PREPPED AND DRAPED IN THE USUAL FASHION. AREA INFILTRATED WITH LIDO FOR LOCAL ANESTHETIC. SHEATH INSERTED IN R FEMORAL ARTERY WITH SELDINGER TECH. CORONARIES VIEWED. VENTRICULOGRAM DONE. SHEATHS PULLED AND PRESSURE HELD. NO BLEEDING PT TOLERATED THE PROCEDURE WELL PT TRANSFERRED BACK TO HER ROOM IN SATISFACTORY CONDITION. FINDINGS: CORONARIES: LM NORMAL, LAD NORMAL, DIAGONALS NORMAL, CX NORMAL , MARGINALS NORMAL, RCA NORMAL, PDA NORMAL, POSTEROLATERAL BRANCH NORMAL. VENTRICULOGRAM: NORMAL LV EF OF 55%, NO GRADIENT ACROSS THE AORTIC VALVE. LVEDP 12mmHg IMPRESSION: NO SIGNIFICANT CAD, PRESERVED LV FUNCTION RECOMMEND NONCARDIAC WORK UP. CHICHO JOHNSON MD Oct 18, 2016 14:10
--- NOTE | 2016-10-18 14:30 | CARD ---
APPROVED REPORT Procedure(s) performed: Left Heart Catheterization HISTORY tobacco history() : The patient is a current smoker: hypertension, dyslipidemia. INDICATION The indication(s) include : unstable angina (>12 hrs to = 24 hrs). CASE TECHNIQUE The patient was brought urgently into the cardiac catheterization lab. A timeout was performed confir cristel the patient's name, date of , procedure, and site of procedure. All necessary parties were wearing the appropriate personal protective equipment and radiation monitoring devices. After explain ing the risks and benefits of the procedure, informed consent was obtained.(See nursing notes for med ications administered). The right groin was sterilely prepped and draped. The right femoral groin was infiltrated with 2% Lidocaine subcutaneous anesthesia. During this case, Fluoroscopy and low osmolar contrast were used for imaging. A 6F sheath was inserted into the right femoral artery without diffi culty. Coronary angiography was performed using coronary diagnostic catheters. The left coronary syst em was accessed and visualized with a Diagnostic catheter. The right coronary system was accessed and visualized with a Diagnostic catheter. The left ventricle was accessed and visualized with a Diagnos tic catheter. Left ventricular/Aortic Valve gradient assessed on pullback. Left ventriculogram was pe rformed in SELLERS projection. Pre-demployment femoral angiogram was performed . Hemostasis was obtained with manual pressure following sheath removal without any complications. The patient tolerated the pr ocedure well and there were no complications associated with the procedure. Coronary Angiography The patient's coronary anatomy is left dominant. The left main coronary artery is a large size vessel free of disease. The left main bifurcates to the left anterior descending and circumflex. The left anterior descending artery is a large size vessel free of disease. The first diagonal branch is a medium size vessel free of disease. The second diagonal branch is a medium size vessel free of disease. The third diagonal branch is a small size vessel free of disease. The circumflex artery is a large size vessel free of disease. The first obtuse marginal branch is a l arge size vessel free of disease. The second obtuse marginal branch is a medium size vessel free of d isease. The third obtuse marginal branch is a small size vessel free of disease. The left posterior d escending artery is a small size vessel free of disease. The right coronary artery is a small size vessel free of disease. The right posterolateral branch is a small size vessel free of disease. Left Ventriculography The left ventricle is normal in size with normal contractility. The left ventricular ejection fractio n is estimated to be 55%. The left ventricular end diastolic pressure is 12 mmHg. There was no gradie nt across the aortic valve upon pullback. Conclusion THIS PT HAS NO SIGNIFICANT CAD. CONSIDER NONCARDIAC WORK UP FOR THE CHEST PAIN AND WILL NEED EVALUATION OF THE ANKLE PAIN ALSO.
[2016-10-18] MEDS: HYDROCODONE/APAP 7.5/325MG TABLET. PO PRN (20:39)
[2016-10-19] MEDS: HYDROCODONE/APAP 7.5/325MG TABLET. PO PRN ×3 (03:30→19:55)
[2016-10-19 03:35] VITALS: BP 143/74
[2016-10-19 07:00] VITALS: BP 133/83
[2016-10-19] MEDS: LISINOPRIL 20 MG TABLET PO SCH ×2 (08:12→19:54)
[2016-10-19] MEDS: COLCHICINE 0.6 MG TABLET PO SCH ×2 (08:12→19:55)
[2016-10-19] MEDS: METOPROLOL TART IMMED RELEASE 25 MG TABLET PO SCH ×2 (08:13→21:00)
[2016-10-19] MEDS: ASPIRIN ENTERIC COATED 81 MG TABLET.DR. PO SCH (08:13)
[2016-10-19] MEDS: HYDROCHLOROTHIAZIDE 25 MG TABLET PO SCH (08:13)
[2016-10-19] MEDS: FAMOTIDINE 20 MG TABLET. PO SCH ×2 (08:13→19:55)
[2016-10-19 11:00] VITALS: BP 156/97
--- NOTE | 2016-10-19 13:55 | PDOC ---
PROGRESS NOTES Chief Complaint Chief Complaint CC: Foot pain A/P Right foot ankle pain, possible gout KEG changes? LBBB Mild elevation of troponin HTN Plan Coronary angiogram by Dr Cisse, no significant CAD colchicine increase the dose HTN stable AC per cardiology, d/w RN Labs reviwed, Vitals Vitals Vital Signs Date Time Temp Pulse Resp B/P Pulse Ox O2 Delivery O2 Flow Rate FiO2 10/19/16 11:52 18 99 Room Air 10/19/16 11:00 98.2 50 156/97 98.2 Physical Exam General: Alert, Oriented X3, Cooperative Heart: Regular rate, Normal S1, Normal S2 Lungs: Clear Abdomen: Normal bowel sounds, Soft Extremities: No edema Assessment and Plan Assessmemt and Plan Problems Medical Problems: (1) EKG abnormality Status: Acute (2) Epigastric abdominal pain Status: Acute Problems: Comment Review of Relevant I have reviewed the following items kenji (where applicable) has been applied. Labs Laboratory Tests Test 10/17/16 15:55 10/17/16 17:40 10/18/16 00:30 10/18/16 07:05 White Blood Count 6.1x10^3/uL (4.0-11.0) 4.8x10^3/uL (4.0-11.0) Red Blood Count 5.61x10^6/uL (3.50-5.40) 5.20x10^6/uL (3.50-5.40) Hemoglobin 12.4g/dL (12.0-15.5) 11.5g/dL (12.0-15.5) Hematocrit 39.3% (36.0-47.0) 36.8% (36.0-47.0) Mean Corpuscular Volume 70fL (79-100) 71fL (79-100) Mean Corpuscular Hemoglobin 22pg (25-35) 22pg (25-35) Mean Corpuscular Hemoglobin Concent 31g/dL (31-37) 31g/dL (31-37) Red Cell Distribution Width 17.1% (11.5-14.5) 17.7% (11.5-14.5) Platelet Count 263x10^3/uL (140-400) 245x10^3/uL (140-400) Neutrophils (%) (Auto) 57% (31-73) 46% (31-73) Lymphocytes (%) (Auto) 34% (24-48) 41% (24-48) Monocytes (%) (Auto) 8% (0-9) 11% (0-9) Eosinophils (%) (Auto) 1% (0-3) 2% (0-3) Basophils (%) (Auto) 1% (0-3) 1% (0-3) Neutrophils # (Auto) 3.5x10^3uL (1.8-7.7) 2.2x10^3uL (1.8-7.7) Lymphocytes # (Auto) 2.1x10^3/uL (1.0-4.8) 2.0x10^3/uL (1.0-4.8) Monocytes # (Auto) 0.5x10^3/uL (0.0-1.1) 0.5x10^3/uL (0.0-1.1) Eosinophils # (Auto) 0.0x10^3/uL (0.0-0.7) 0.1x10^3/uL (0.0-0.7) Basophils # (Auto) 0.1x10^3/uL (0.0-0.2) 0.0x10^3/uL (0.0-0.2) Platelet Estimate Adequate (ADEQUATE) Polychromasia Slight Hypochromasia Mod Anisocytosis Slight Microcytosis Mod Target Cells Few Sodium Level 135mmol/L (136-145) 140mmol/L (136-145) Potassium Level 3.5mmol/L (3.5-5.1) 4.0mmol/L (3.5-5.1) Chloride Level 101mmol/L (98-107) 106mmol/L (98-107) Carbon Dioxide Level 27mmol/L (21-32) 28mmol/L (21-32) Anion Gap 7 (6-14) 6 (6-14) Blood Urea Nitrogen 11mg/dL (7-20) 9mg/dL (7-20) Creatinine 0.7mg/dL (0.6-1.0) 0.8mg/dL (0.6-1.0) Estimated GFR (Cockcroft-Gault) 106.3 91.1 Glucose Level 92mg/dL (70-99) 80mg/dL (70-99) Lactic Acid Level 1.1mmol/L (0.4-2.0) Calcium Level 7.9mg/dL (8.5-10.1) 8.1mg/dL (8.5-10.1) Total Bilirubin 0.2mg/dL (0.2-1.0) Direct Bilirubin < 0.1mg/dL (0.0-0.2) Aspartate Amino Transf (AST/SGOT) 19U/L (15-37) Alanine Aminotransferase (ALT/SGPT) 17U/L (14-59) Alkaline Phosphatase 54U/L (46-116) Troponin I Quantitative 0.033ng/mL (0.000-0.055) 0.038ng/mL (0.000-0.055) 0.052ng/mL (0.000-0.055) 0.044ng/mL (0.000-0.055) Total Protein 5.3g/dL (6.4-8.2) Albumin 2.3g/dL (3.4-5.0) Lipase 64U/L (73-393) Uric Acid 4.7mg/dL (2.6-6.0) Triglycerides Level 103mg/dL (0-150) Cholesterol Level 144mg/dL (0-200) LDL Cholesterol, Calculated 102mg/dL (0-100) VLDL Cholesterol, Calculated 21mg/dL (0-40) HDL Cholesterol 21mg/dL (40-60) Cholesterol/HDL Ratio 6.9 Microbiology 10/17/16 Blood Culture - Preliminary, Resulted NO GROWTH AFTER 1 DAY Medications Current Medications Acetaminophen/ Hydrocodone Bitart (Lortab 5/325) 2 tab 1X ONCE PO Last administered on 10/17/16 15:29; Start 10/17/16 at 15:30; Stop 10/17/16 at 15:31 ; Status DC Naproxen 500 mg 500 mg 1X ONCE PO Last administered on 10/17/16 15:30; Start 10/17/16 at 15:30; Stop 10/17/16 at 15:31; Status DC Sodium Chloride (Iv Sodium Chloride 0.9% 1000ml Bag) 1,000 ml @ 1,000 mls/hr 1X ONCE IV Last administered on 10/17/16 15:43; Start 10/17/16 at 15:30; Stop 10/17/16 at 16:29; Status DC Famotidine (Pepcid) 20 mg 1X ONCE IVP Last administered on 10/17/16 17:15; Start 10/17/16 at 17:00; Stop 10/17/16 at 17:01; Status DC Aspirin (Children'S Aspirin) 324 mg 1X ONCE PO Last administered on 10/17/16 17:15; Start 10/17/16 at 17:00; Stop 10/17/16 at 17:01; Status DC Ondansetron HCl (Zofran) 4 mg PRN Q8HRS PRN IV NAUSEA/VOMITING Last administered on 10/18/16 08:59; Start 10/17/16 at 18:00; Stop 10/18/16 at 17:59 ; Status DC Morphine Sulfate 4 mg PRN Q2HR PRN IV PAIN Last administered on 10/18/16 08:58 ; Start 10/17/16 at 18:00; Stop 10/18/16 at 17:59; Status DC Acetaminophen (Tylenol) 650 mg PRN Q4HRS PRN PO FEVER; Start 10/17/16 at 18:00 ; Stop 10/17/16 at 22:45; Status DC Nitroglycerin (Nitrostat) 0.4 mg PRN Q5MIN PRN SL CHEST PAIN; Start 10/17/16 at 18:00; Stop 10/18/16 at 17:59; Status DC Multi-Ingredient Mouthwash/Gargle (Gi Cocktail Single Dose) 15 ml 1X ONCE SWSW Last administered on 10/17/16 17:59; Start 10/17/16 at 18:00; Stop 10/17/16 at 18:01; Status DC Cephalexin HCl (Keflex) 500 mg 1X ONCE PO Last administered on 10/17/16 18:49 ; Start 10/17/16 at 18:00; Stop 10/17/16 at 18:01; Status DC Lisinopril (Prinivil) 20 mg BID PO Last administered on 10/19/16 08:12; Start 10/17/16 at 23:00 Metoprolol Tartrate (Lopressor) 25 mg BID PO Last administered on 10/19/16 08: 13; Start 10/17/16 at 23:00 Acetaminophen (Tylenol) 650 mg PRN Q4HRS PRN PO HEADACHE Last administered on 20:21; Start 10/17/16 at 22:45 Aspirin (Ecotrin) 81 mg DAILY PO Last administered on 10/19/16 08:13; Start at 09:00 Hydrochlorothiazide (Hydrodiuril) 25 mg DAILY PO Last administered on 08:13; Start 10/18/16 at 09:00 Famotidine (Pepcid) 20 mg BID PO Last administered on 10/19/16 08:13; Start at 23:00 Hydralazine HCl (Apresoline) 10 mg PRN Q4HRS PRN IVP ELEVATED BP, SEE COMMENTS ; Start 10/17/16 at 22:45 Colchicine (Colcrys) 0.6 mg DAILY PO Last administered on 10/19/16 08:12; Start 10/18/16 at 09:00 Colchicine 0.6 mg 0.6 mg 1X ONCE PO ; Start 10/17/16 at 23:00; Stop 10/17/16 at 23:01; Status DC Heparin Sodium/ Sodium Chloride 1,000 ml @ As Directed STK-MED ONCE .ROUTE ; Start 10/18/16 at 12:30; Stop 10/18/16 at 12:31; Status DC Iohexol (Omnipaque 300 Mg/ml) 100 ml STK-MED ONCE .ROUTE ; Start 10/18/16 at 12: 31; Stop 10/18/16 at 12:32; Status DC Lidocaine HCl 20 ml STK-MED ONCE .ROUTE ; Start 10/18/16 at 12:31; Stop at 12:32; Status DC Fentanyl Citrate (Fentanyl 2ml Vial) 100 mcg STK-MED ONCE .ROUTE ; Start at 13:01; Stop 10/18/16 at 13:02; Status DC Midazolam HCl (Versed) 2 mg STK-MED ONCE .ROUTE ; Start 10/18/16 at 13:02; Stop 10/18/16 at 13:03; Status DC Heparin Sodium/ Sodium Chloride 1,000 unit 1X ONCE IART Last administered on 13:35; Start 10/18/16 at 13:15; Stop 10/18/16 at 13:16; Status DC Midazolam HCl (Versed) 2 mg 1X ONCE IV Last administered on 10/18/16 13:34; Start 10/18/16 at 13:15; Stop 10/18/16 at 13:16; Status DC Fentanyl Citrate (Fentanyl 2ml Vial) 100 mcg 1X ONCE IV Last administered on 13:35; Start 10/18/16 at 13:15; Stop 10/18/16 at 13:16; Status DC Iohexol (Omnipaque 300 Mg/ml) 100 ml 1X ONCE IART Last administered on 13:15; Start 10/18/16 at 13:15; Stop 10/18/16 at 13:16; Status DC Lidocaine HCl 20 ml 1X ONCE IJ Last administered on 10/18/16 13:35; Start at 13:15; Stop 10/18/16 at 13:16; Status DC Lidocaine HCl 20 ml STK-MED ONCE .ROUTE ; Start 10/18/16 at 13:15; Stop at 13:16; Status DC Acetaminophen/ Hydrocodone Bitart (Lortab 7.5/325) 1 tab PRN Q6HRS PRN PO PAIN Last administered on 10/19/16 10:33; Start 10/18/16 at 20:30 Active Scripts Active Tylenol (Acetaminophen) 325 Mg Tablet 325 Mg PO PRN Q6-8HRS PRN [Metoprolol Tartrate] 25 MG Tablet 25 Mg PO BID 30 Days Prinivil (Lisinopril) 20 Mg Tablet 20 Mg PO BID 30 Days Reported Aspir 81 (Aspirin) 81 Mg Tablet. 1 Tab PO DAILY Hydrochlorothiazide Tablet (Hydrochlorothiazide) 25 Mg Tablet 1 Tab PO DAILY Vitals/I & O Vital Sign - Last 24 Hours 10/18/16 10/18/16 10/18/16 10/18/16 13:59 14:08 14:25 14:41 Temp 98.0 98.0 Pulse 53 48 49 71 Resp 16 16 B/P 105/67 126/73 116/69 160/84 Pulse Ox 98 O2 Delivery Room Air 10/18/16 10/18/16 10/18/16 10/18/16 14:53 14:55 15:12 15:25 Pulse 46 46 50 Resp 18 18 B/P 160/72 134/72 143/62 Pulse Ox 98 O2 Delivery Room Air 10/18/16 10/18/16 10/18/16 10/18/16 15:38 16:13 16:45 17:35 Temp 98.0 98.0 Pulse 64 53 48 48 Resp 18 18 18 B/P 138/77 120/68 125/73 153/73 Pulse Ox 97 O2 Delivery Room Air Room Air Room Air 10/18/16 10/18/16 10/18/16 10/18/16 18:45 19:30 19:54 20:21 Temp 98.4 98.4 Pulse 70 53 53 Resp 16 B/P 160/79 138/70 138/70 Pulse Ox 99 O2 Delivery Room Air Room Air 10/18/16 10/18/16 10/18/16 10/19/16 20:39 20:40 23:07 03:30 Temp 98.4 98.4 Pulse 51 60 Resp 16 16 18 B/P 150/61 Pulse Ox 97 97 O2 Delivery Room Air Room Air Room Air 10/19/16 10/19/16 10/19/16 10/19/16 03:35 07:00 08:00 08:12 Temp 98.4 98.5 98.4 98.5 Pulse 55 50 50 Resp 16 18 B/P 143/74 133/83 133/83 Pulse Ox 96 99 O2 Delivery Room Air Room Air Room Air 10/19/16 10/19/16 10/19/16 10/19/16 08:13 10:33 11:00 11:52 Temp 98.2 98.2 Pulse 50 50 Resp 18 B/P 133/83 156/97 Pulse Ox 99 99 99 O2 Delivery Room Air Room Air Room Air Intake and Output 10/18/16 10/18/16 10/19/16 15:00 23:00 07:00 Intake Total 300 ml Output Total 300 ml Balance 0 ml ELKE BOWDEN MD Oct 19, 2016 13:55
[2016-10-19] MEDS ORDERED: ONDANSETRON PF 4 MG/2 ML VIAL. IV PRN (14:30)
[2016-10-19 14:50] VITALS: BP 119/78
--- NOTE | 2016-10-19 16:09 | PDOC ---
PROGRESS NOTES Subjective Subjective No new complaints, continues to have ankle pain Objective Objective Vital Signs Date Time Temp Pulse Resp B/P Pulse Ox O2 Delivery O2 Flow Rate FiO2 10/19/16 14:50 98.3 52 18 119/78 100 Room Air 98.3 Intake and Output 10/19/16 07:00 Intake Total 300 ml Output Total 300 ml Balance 0 ml Intake Oral 300 ml Output Urine Total 300 ml # Voids 3 Physical Exam Physical Exam No changes in cardiac exam No bleeding from groin. Assessment Assessment Pt stable cardiac rivera Agree with present plan Problems Medical Problems: (1) EKG abnormality Status: Acute (2) Epigastric abdominal pain Status: Acute Comment Review of Relevant I have reviewed the following items kenij (where applicable) has been applied. Labs Laboratory Tests Test 10/17/16 17:40 10/18/16 00:30 10/18/16 07:05 Troponin I Quantitative 0.038ng/mL (0.000-0.055) 0.052ng/mL (0.000-0.055) 0.044ng/mL (0.000-0.055) White Blood Count 4.8x10^3/uL (4.0-11.0) Red Blood Count 5.20x10^6/uL (3.50-5.40) Hemoglobin 11.5g/dL (12.0-15.5) Hematocrit 36.8% (36.0-47.0) Mean Corpuscular Volume 71fL (79-100) Mean Corpuscular Hemoglobin 22pg (25-35) Mean Corpuscular Hemoglobin Concent 31g/dL (31-37) Red Cell Distribution Width 17.7% (11.5-14.5) Platelet Count 245x10^3/uL (140-400) Neutrophils (%) (Auto) 46% (31-73) Lymphocytes (%) (Auto) 41% (24-48) Monocytes (%) (Auto) 11% (0-9) Eosinophils (%) (Auto) 2% (0-3) Basophils (%) (Auto) 1% (0-3) Neutrophils # (Auto) 2.2x10^3uL (1.8-7.7) Lymphocytes # (Auto) 2.0x10^3/uL (1.0-4.8) Monocytes # (Auto) 0.5x10^3/uL (0.0-1.1) Eosinophils # (Auto) 0.1x10^3/uL (0.0-0.7) Basophils # (Auto) 0.0x10^3/uL (0.0-0.2) Sodium Level 140mmol/L (136-145) Potassium Level 4.0mmol/L (3.5-5.1) Chloride Level 106mmol/L (98-107) Carbon Dioxide Level 28mmol/L (21-32) Anion Gap 6 (6-14) Blood Urea Nitrogen 9mg/dL (7-20) Creatinine 0.8mg/dL (0.6-1.0) Estimated GFR (Cockcroft-Gault) 91.1 Glucose Level 80mg/dL (70-99) Uric Acid 4.7mg/dL (2.6-6.0) Calcium Level 8.1mg/dL (8.5-10.1) Triglycerides Level 103mg/dL (0-150) Cholesterol Level 144mg/dL (0-200) LDL Cholesterol, Calculated 102mg/dL (0-100) VLDL Cholesterol, Calculated 21mg/dL (0-40) HDL Cholesterol 21mg/dL (40-60) Cholesterol/HDL Ratio 6.9 Microbiology 10/17/16 Blood Culture - Preliminary, Resulted NO GROWTH AFTER 1 DAY Medications Current Medications Acetaminophen/ Hydrocodone Bitart (Lortab 5/325) 2 tab 1X ONCE PO Last administered on 10/17/16 15:29; Start 10/17/16 at 15:30; Stop 10/17/16 at 15:31 ; Status DC Naproxen 500 mg 500 mg 1X ONCE PO Last administered on 10/17/16 15:30; Start 10/17/16 at 15:30; Stop 10/17/16 at 15:31; Status DC Sodium Chloride (Iv Sodium Chloride 0.9% 1000ml Bag) 1,000 ml @ 1,000 mls/hr 1X ONCE IV Last administered on 10/17/16 15:43; Start 10/17/16 at 15:30; Stop 10/17/16 at 16:29; Status DC Famotidine (Pepcid) 20 mg 1X ONCE IVP Last administered on 10/17/16 17:15; Start 10/17/16 at 17:00; Stop 10/17/16 at 17:01; Status DC Aspirin (Children'S Aspirin) 324 mg 1X ONCE PO Last administered on 10/17/16 17:15; Start 10/17/16 at 17:00; Stop 10/17/16 at 17:01; Status DC Ondansetron HCl (Zofran) 4 mg PRN Q8HRS PRN IV NAUSEA/VOMITING Last administered on 10/18/16 08:59; Start 10/17/16 at 18:00; Stop 10/18/16 at 17:59 ; Status DC Morphine Sulfate 4 mg PRN Q2HR PRN IV PAIN Last administered on 10/18/16 08:58 ; Start 10/17/16 at 18:00; Stop 10/18/16 at 17:59; Status DC Acetaminophen (Tylenol) 650 mg PRN Q4HRS PRN PO FEVER; Start 10/17/16 at 18:00 ; Stop 10/17/16 at 22:45; Status DC Nitroglycerin (Nitrostat) 0.4 mg PRN Q5MIN PRN SL CHEST PAIN; Start 10/17/16 at 18:00; Stop 10/18/16 at 17:59; Status DC Multi-Ingredient Mouthwash/Gargle (Gi Cocktail Single Dose) 15 ml 1X ONCE SWSW Last administered on 10/17/16 17:59; Start 10/17/16 at 18:00; Stop 10/17/16 at 18:01; Status DC Cephalexin HCl (Keflex) 500 mg 1X ONCE PO Last administered on 10/17/16 18:49 ; Start 10/17/16 at 18:00; Stop 10/17/16 at 18:01; Status DC Lisinopril (Prinivil) 20 mg BID PO Last administered on 10/19/16 08:12; Start 10/17/16 at 23:00 Metoprolol Tartrate (Lopressor) 25 mg BID PO Last administered on 10/19/16 08: 13; Start 10/17/16 at 23:00 Acetaminophen (Tylenol) 650 mg PRN Q4HRS PRN PO HEADACHE Last administered on 20:21; Start 10/17/16 at 22:45 Aspirin (Ecotrin) 81 mg DAILY PO Last administered on 10/19/16 08:13; Start at 09:00 Hydrochlorothiazide (Hydrodiuril) 25 mg DAILY PO Last administered on 08:13; Start 10/18/16 at 09:00 Famotidine (Pepcid) 20 mg BID PO Last administered on 10/19/16 08:13; Start at 23:00 Hydralazine HCl (Apresoline) 10 mg PRN Q4HRS PRN IVP ELEVATED BP, SEE COMMENTS ; Start 10/17/16 at 22:45 Colchicine (Colcrys) 0.6 mg DAILY PO Last administered on 10/19/16 08:12; Start 10/18/16 at 09:00; Stop 10/19/16 at 14:25; Status DC Colchicine 0.6 mg 0.6 mg 1X ONCE PO ; Start 10/17/16 at 23:00; Stop 10/17/16 at 23:01; Status DC Heparin Sodium/ Sodium Chloride 1,000 ml @ As Directed STK-MED ONCE .ROUTE ; Start 10/18/16 at 12:30; Stop 10/18/16 at 12:31; Status DC Iohexol (Omnipaque 300 Mg/ml) 100 ml STK-MED ONCE .ROUTE ; Start 10/18/16 at 12: 31; Stop 10/18/16 at 12:32; Status DC Lidocaine HCl 20 ml STK-MED ONCE .ROUTE ; Start 10/18/16 at 12:31; Stop at 12:32; Status DC Fentanyl Citrate (Fentanyl 2ml Vial) 100 mcg STK-MED ONCE .ROUTE ; Start at 13:01; Stop 10/18/16 at 13:02; Status DC Midazolam HCl (Versed) 2 mg STK-MED ONCE .ROUTE ; Start 10/18/16 at 13:02; Stop 10/18/16 at 13:03; Status DC Heparin Sodium/ Sodium Chloride 1,000 unit 1X ONCE IART Last administered on 13:35; Start 10/18/16 at 13:15; Stop 10/18/16 at 13:16; Status DC Midazolam HCl (Versed) 2 mg 1X ONCE IV Last administered on 10/18/16 13:34; Start 10/18/16 at 13:15; Stop 10/18/16 at 13:16; Status DC Fentanyl Citrate (Fentanyl 2ml Vial) 100 mcg 1X ONCE IV Last administered on 13:35; Start 10/18/16 at 13:15; Stop 10/18/16 at 13:16; Status DC Iohexol (Omnipaque 300 Mg/ml) 100 ml 1X ONCE IART Last administered on 13:15; Start 10/18/16 at 13:15; Stop 10/18/16 at 13:16; Status DC Lidocaine HCl 20 ml 1X ONCE IJ Last administered on 10/18/16 13:35; Start at 13:15; Stop 10/18/16 at 13:16; Status DC Lidocaine HCl 20 ml STK-MED ONCE .ROUTE ; Start 10/18/16 at 13:15; Stop at 13:16; Status DC Acetaminophen/ Hydrocodone Bitart (Lortab 7.5/325) 1 tab PRN Q6HRS PRN PO PAIN Last administered on 10/19/16 10:33; Start 10/18/16 at 20:30 Colchicine (Colcrys) 0.6 mg BID PO ; Start 10/19/16 at 21:00 Ondansetron HCl (Zofran) 4 mg PRN Q6HRS PRN IV NAUSEA/VOMITING Last administered on 10/19/16 14:51; Start 10/19/16 at 14:30 Active Scripts Active Tylenol (Acetaminophen) 325 Mg Tablet 325 Mg PO PRN Q6-8HRS PRN [Metoprolol Tartrate] 25 MG Tablet 25 Mg PO BID 30 Days Prinivil (Lisinopril) 20 Mg Tablet 20 Mg PO BID 30 Days Reported Aspir 81 (Aspirin) 81 Mg Tablet. 1 Tab PO DAILY Hydrochlorothiazide Tablet (Hydrochlorothiazide) 25 Mg Tablet 1 Tab PO DAILY Vitals/I & O Vital Sign - Last 24 Hours 10/18/16 10/18/16 10/18/16 10/18/16 16:13 16:45 17:35 18:45 Pulse 53 48 48 70 Resp 18 18 B/P 120/68 125/73 153/73 160/79 O2 Delivery Room Air Room Air 10/18/16 10/18/16 10/18/16 10/18/16 19:30 19:54 20:21 20:39 Temp 98.4 98.4 Pulse 53 53 Resp B/P 138/70 138/70 Pulse Ox 99 O2 Delivery Room Air Room Air Room Air 10/18/16 10/18/16 10/19/16 10/19/16 20:40 23:07 03:30 03:35 Temp 98.4 98.4 98.4 98.4 Pulse 51 60 55 Resp B/P 150/61 143/74 Pulse Ox 97 97 96 O2 Delivery Room Air Room Air Room Air 10/19/16 10/19/16 10/19/16 10/19/16 07:00 08:00 08:12 08:13 Temp 98.5 98.5 Pulse 50 50 50 Resp 18 B/P 133/83 133/83 133/83 Pulse Ox 99 O2 Delivery Room Air Room Air 10/19/16 10/19/16 10/19/16 10/19/16 10:33 11:00 11:52 14:50 Temp 98.2 98.3 98.2 98.3 Pulse 50 52 Resp B/P 156/97 119/78 Pulse Ox 99 99 99 100 O2 Delivery Room Air Room Air Room Air Room Air Intake and Output 10/18/16 10/18/16 10/19/16 15:00 23:00 07:00 Intake Total 300 ml Output Total 300 ml Balance 0 ml CHICHO JOHNSON MD Oct 19, 2016 16:09
[2016-10-19 19:30] VITALS: BP 122/76
[2016-10-19 22:17] VITALS: BP 146/81
[2016-10-20 03:29] VITALS: BP 137/80
[2016-10-20 07:41] VITALS: BP 137/77
[2016-10-20] MEDS ORDERED: HYDR-2762 PO (08:49)
[2016-10-20] MEDS ORDERED: NAPR500T PO (08:49)
[2016-10-20] MEDS ORDERED: NAPROXEN 500 MG TABLET PO SCH (09:00)
[2016-10-20] MEDS: METOPROLOL TART IMMED RELEASE 25 MG TABLET PO SCH (09:00)
[2016-10-20 09:13] VITALS: BP 137/77
[2016-10-20] MEDS: FAMOTIDINE 20 MG TABLET. PO SCH (09:13)
[2016-10-20] MEDS: COLCHICINE 0.6 MG TABLET PO SCH (09:13)
[2016-10-20] MEDS: LISINOPRIL 20 MG TABLET PO SCH (09:13)
[2016-10-20] MEDS: HYDROCHLOROTHIAZIDE 25 MG TABLET PO SCH (09:13)
[2016-10-20] MEDS: ASPIRIN ENTERIC COATED 81 MG TABLET.DR. PO SCH (09:14)
--- NOTE | 2016-10-20 09:52 | PDOC ---
PROGRESS NOTES Subjective Subjective Patient doing well, plans to go home today. Would like to return to work on the . Denies any cardiac complaints. Does report some soreness at incision site , denies any redness/swelling or fevers. Nursing reports that Lopressor has been held due to bradycardia. Patient states she does not normally take this at home. Objective Objective Vital Signs Date Time Temp Pulse Resp B/P Pulse Ox O2 Delivery O2 Flow Rate FiO2 10/20/16 09:13 52 137/77 10/20/16 07:41 98.4 18 98 Room Air 98.4 Intake and Output 10/20/16 07:00 Intake Total 2150 ml Output Total 200 ml Balance 1950 ml Intake Oral 2150 ml Emesis 200 ml # Voids 7 Physical Exam Heart: Normal S1, Normal S2, Other (Bradycardic in low 50s) Extremities: No cyanosis, No edema General: Alert, Cooperative, No acute distress Lungs: Clear to auscultation, Normal air movement Assessment Assessment Problems Medical Problems: (1) Ankle pain Status: Acute (2) EKG abnormality Status: Acute (3) Epigastric abdominal pain Status: Acute Comment Review of Relevant I have reviewed the following items kenji (where applicable) has been applied. Labs Microbiology 10/17/16 Blood Culture - Preliminary, Resulted NO GROWTH AFTER 2 DAYS Medications Current Medications Acetaminophen/ Hydrocodone Bitart (Lortab 5/325) 2 tab 1X ONCE PO Last administered on 10/17/16 15:29; Start 10/17/16 at 15:30; Stop 10/17/16 at 15:31 ; Status DC Naproxen 500 mg 500 mg 1X ONCE PO Last administered on 10/17/16 15:30; Start 10/17/16 at 15:30; Stop 10/17/16 at 15:31; Status DC Sodium Chloride (Iv Sodium Chloride 0.9% 1000ml Bag) 1,000 ml @ 1,000 mls/hr 1X ONCE IV Last administered on 10/17/16 15:43; Start 10/17/16 at 15:30; Stop 10/17/16 at 16:29; Status DC Famotidine (Pepcid) 20 mg 1X ONCE IVP Last administered on 10/17/16 17:15; Start 10/17/16 at 17:00; Stop 10/17/16 at 17:01; Status DC Aspirin (Children'S Aspirin) 324 mg 1X ONCE PO Last administered on 10/17/16 17:15; Start 10/17/16 at 17:00; Stop 10/17/16 at 17:01; Status DC Ondansetron HCl (Zofran) 4 mg PRN Q8HRS PRN IV NAUSEA/VOMITING Last administered on 10/18/16 08:59; Start 10/17/16 at 18:00; Stop 10/18/16 at 17:59 ; Status DC Morphine Sulfate 4 mg PRN Q2HR PRN IV PAIN Last administered on 10/18/16 08:58 ; Start 10/17/16 at 18:00; Stop 10/18/16 at 17:59; Status DC Acetaminophen (Tylenol) 650 mg PRN Q4HRS PRN PO FEVER; Start 10/17/16 at 18:00 ; Stop 10/17/16 at 22:45; Status DC Nitroglycerin (Nitrostat) 0.4 mg PRN Q5MIN PRN SL CHEST PAIN; Start 10/17/16 at 18:00; Stop 10/18/16 at 17:59; Status DC Multi-Ingredient Mouthwash/Gargle (Gi Cocktail Single Dose) 15 ml 1X ONCE SWSW Last administered on 10/17/16 17:59; Start 10/17/16 at 18:00; Stop 10/17/16 at 18:01; Status DC Cephalexin HCl (Keflex) 500 mg 1X ONCE PO Last administered on 10/17/16 18:49 ; Start 10/17/16 at 18:00; Stop 10/17/16 at 18:01; Status DC Lisinopril (Prinivil) 20 mg BID PO Last administered on 10/20/16 09:13; Start 10/17/16 at 23:00 Metoprolol Tartrate (Lopressor) 25 mg BID PO Last administered on 10/19/16 08: 13; Start 10/17/16 at 23:00 Acetaminophen (Tylenol) 650 mg PRN Q4HRS PRN PO HEADACHE Last administered on 20:21; Start 10/17/16 at 22:45 Aspirin (Ecotrin) 81 mg DAILY PO Last administered on 10/20/16 09:14; Start at 09:00 Hydrochlorothiazide (Hydrodiuril) 25 mg DAILY PO Last administered on 09:13; Start 10/18/16 at 09:00 Famotidine (Pepcid) 20 mg BID PO Last administered on 10/20/16 09:13; Start at 23:00 Hydralazine HCl (Apresoline) 10 mg PRN Q4HRS PRN IVP ELEVATED BP, SEE COMMENTS ; Start 10/17/16 at 22:45 Colchicine (Colcrys) 0.6 mg DAILY PO Last administered on 10/19/16 08:12; Start 10/18/16 at 09:00; Stop 10/19/16 at 14:25; Status DC Colchicine 0.6 mg 0.6 mg 1X ONCE PO ; Start 10/17/16 at 23:00; Stop 10/17/16 at 23:01; Status DC Heparin Sodium/ Sodium Chloride 1,000 ml @ As Directed STK-MED ONCE .ROUTE ; Start 10/18/16 at 12:30; Stop 10/18/16 at 12:31; Status DC Iohexol (Omnipaque 300 Mg/ml) 100 ml STK-MED ONCE .ROUTE ; Start 10/18/16 at 12: 31; Stop 10/18/16 at 12:32; Status DC Lidocaine HCl 20 ml STK-MED ONCE .ROUTE ; Start 10/18/16 at 12:31; Stop at 12:32; Status DC Fentanyl Citrate (Fentanyl 2ml Vial) 100 mcg STK-MED ONCE .ROUTE ; Start at 13:01; Stop 10/18/16 at 13:02; Status DC Midazolam HCl (Versed) 2 mg STK-MED ONCE .ROUTE ; Start 10/18/16 at 13:02; Stop 10/18/16 at 13:03; Status DC Heparin Sodium/ Sodium Chloride 1,000 unit 1X ONCE IART Last administered on 13:35; Start 10/18/16 at 13:15; Stop 10/18/16 at 13:16; Status DC Midazolam HCl (Versed) 2 mg 1X ONCE IV Last administered on 10/18/16 13:34; Start 10/18/16 at 13:15; Stop 10/18/16 at 13:16; Status DC Fentanyl Citrate (Fentanyl 2ml Vial) 100 mcg 1X ONCE IV Last administered on 13:35; Start 10/18/16 at 13:15; Stop 10/18/16 at 13:16; Status DC Iohexol (Omnipaque 300 Mg/ml) 100 ml 1X ONCE IART Last administered on 13:15; Start 10/18/16 at 13:15; Stop 10/18/16 at 13:16; Status DC Lidocaine HCl 20 ml 1X ONCE IJ Last administered on 10/18/16 13:35; Start at 13:15; Stop 10/18/16 at 13:16; Status DC Lidocaine HCl 20 ml STK-MED ONCE .ROUTE ; Start 10/18/16 at 13:15; Stop at 13:16; Status DC Acetaminophen/ Hydrocodone Bitart (Lortab 7.5/325) 1 tab PRN Q6HRS PRN PO PAIN Last administered on 10/19/16 19:55; Start 10/18/16 at 20:30 Colchicine (Colcrys) 0.6 mg BID PO Last administered on 10/20/16 09:13; Start 10/19/16 at 21:00 Ondansetron HCl (Zofran) 4 mg PRN Q6HRS PRN IV NAUSEA/VOMITING Last administered on 10/19/16 14:51; Start 10/19/16 at 14:30 Naproxen (Naprosyn) 500 mg BID PO Last administered on 10/20/16 09:22; Start 10/20/16 at 09:00 Active Scripts Active Naprosyn (Naproxen) 500 Mg Tablet 500 Mg PO BID Hydrocodone-Apap 7.5-325 (Hydrocodone Bit/Acetaminophen) 1 Each Tablet 1 Tab PO PRN Q6HRS PRN Tylenol (Acetaminophen) 325 Mg Tablet 325 Mg PO PRN Q6-8HRS PRN [Metoprolol Tartrate] 25 MG Tablet 25 Mg PO BID 30 Days Prinivil (Lisinopril) 20 Mg Tablet 20 Mg PO BID 30 Days Reported Aspir 81 (Aspirin) 81 Mg Tablet.dr 1 Tab PO DAILY Hydrochlorothiazide Tablet (Hydrochlorothiazide) 25 Mg Tablet 1 Tab PO DAILY Vitals/I & O Vital Sign - Last 24 Hours 10/19/16 10/19/16 10/19/16 10/19/16 10:33 11:00 11:52 14:50 Temp 98.2 98.3 98.2 98.3 Pulse 50 52 Resp 18 18 18 18 B/P 156/97 119/78 Pulse Ox 99 99 100 O2 Delivery Room Air Room Air Room Air 10/19/16 10/19/16 10/19/16 10/19/16 19:30 19:54 19:55 20:00 Temp 98.4 98.4 Pulse 54 50 Resp 16 B/P 122/76 122/78 Pulse Ox 97 100 O2 Delivery Room Air Room Air Room Air 10/19/16 10/19/16 10/19/16 10/20/16 20:55 21:00 22:17 03:29 Temp 98.5 98.4 98.5 98.4 Pulse 55 61 54 Resp 16 16 B/P 146/81 137/80 Pulse Ox 100 98 100 O2 Delivery Room Air Room Air Room Air 10/20/16 10/20/16 10/20/16 07:41 09:00 09:13 Temp 98.4 98.4 Pulse 52 52 52 Resp 18 B/P 137/77 137/77 137/77 Pulse Ox 98 O2 Delivery Room Air Intake and Output 10/19/16 10/19/16 10/20/16 15:00 23:00 07:00 Intake Total 250 ml 1300 ml 600 ml Output Total 200 ml Balance 250 ml 1100 ml 600 ml CHICHO JOHNSON MD Oct 20, 2016 09:52
--- NOTE | 2016-10-20 13:34 | PDOC3 ---
Discharge Summary [facility] Date of Admission: Oct 17, 2016 Discharge Date: Oct 20, 2016 Admitting Diagnosis Right foot ankle pain, possible gout KEG changes? LBBB Mild elevation of troponin HTN Problems: Final Diagnosis CONSULTS card Procedures neg cath Brief Hospital Course Ms. Correa is a 51 old F, with bl ankle and toes pain chronically, comes for right ankle pain, and chest pain, CE neg. DID cath ,NEG CAD. UA normal. pt however, likely has gout, never seen a rheum before. dc home with naproxen, and 10 pills lortab, and fu with PCP next week. dc time 35min General: Alert, Oriented X3, Cooperative Heart: Regular rate, Normal S1, Normal S2 Lungs: Clear Abdomen: Normal bowel sounds, Soft Extremities: No edema. right medial ankle mild warm, erythematous, + tender Patient History: FH: NV (myocardial infarction) 33 FATHER 32 MOTHER FH: diabetes mellitus 33 FATHER FH: hypertension 33 FATHER 32 MOTHER FH: kidney disease FH: lung cancer uncle FH: lupus 32 MOTHER FH: prostate cancer 33 FATHER FH: sickle cell anemia Patient's father is Patient's mother is Problems: Disposition home CONDITION AT DISCHARGE: Improved Diet regular Scheduled ([Metoprolol Tartrate]) 25 MG PO BID Aspirin (Aspir 81) 1 TAB PO DAILY (Reported) Hydrochlorothiazide (Hydrochlorothiazide Tablet ) 1 TAB PO DAILY (Reported) Lisinopril (Prinivil) 20 MG PO BID Naproxen (Naprosyn) 500 MG PO BID Scheduled PRN Acetaminophen (Tylenol) 325 MG PO PRN Q6-8HRS PRN PRN HEADACHE Hydrocodone Bit/Acetaminophen (Hydrocodone-Apap 7.5-325 ) 1 TAB PO PRN Q6HRS PRN PRN PAIN Follow Up pcp next week KARMEN TALLEY MD Oct 20, 2016 13:34
== END 2016-10-20 10:45 | disposition home or self-care (01) | DRG 287 ==
LOC: ER 14:07 → CVICU 17:46
PROVIDERS: ADMIT Internal Medicine Hematology & Oncology; ATTEND Internal Medicine Hematology & Oncology
PROC: 4A023N7 Measurement of Cardiac Sampling and Pressure, Left Heart, Percutaneous Approach (ICD-10-PCS; principal; 2016-10-18)
PROC: B2151ZZ Fluoroscopy of Left Heart using Low Osmolar Contrast (ICD-10-PCS; 2016-10-18)
PROC: B2111ZZ Fluoroscopy of Multiple Coronary Arteries using Low Osmolar Contrast (ICD-10-PCS; 2016-10-18)
DX: R07.9 Chest pain, unspecified (principal); Q21.1 Atrial septal defect; E44.0 Moderate protein-calorie malnutrition; M10.9 Gout, unspecified; F17.210 Nicotine dependence, cigarettes, uncomplicated; G43.909 Migraine, unspecified, not intractable, without status migrainosus; I10 Essential (primary) hypertension; I44.7 Left bundle-branch block, unspecified; K21.9 Gastro-esophageal reflux disease without esophagitis; Z82.69 Family history of other diseases of the musculoskeletal system and connective tissue; Z83.3 Family history of diabetes mellitus; Z82.49 Family history of ischemic heart disease and other diseases of the circulatory system; Z90.49 Acquired absence of other specified parts of digestive tract; Z79.899 Other long term (current) drug therapy; Z80.1 Family history of malignant neoplasm of trachea, bronchus and lung; Z80.51 Family history of malignant neoplasm of kidney; Z80.42 Family history of malignant neoplasm of prostate; Z83.2 Family history of diseases of the blood and blood-forming organs and certain disorders involving the immune mechanism
CPT/HCPCS: 36415; 71010; 73630; 80048; 80061; 80076; 83605; 83690; 84484; 84550; 85007; 85027; 87040; 93005; 93458; 93971; C1769; C1892; J2250; J2270; J2405; J3010; J7030; Q9967; S0028

== ENCOUNTER 2016-10-31 19:40 | Emergency (ER) | payer SELFPAY ==
[~2016-10-31] VITALS: Ht 165.1 cm; Wt 69.4 kg
[~2016-10-31 19:40] MED LIST changes: +HYDR-2762 PO; +NAPR500T PO
[2016-10-31] MEDS ORDERED: IV NORMAL SALINE 1000ML BAG 1,000 ML IV SCH (20:11)
[2016-10-31] MEDS ORDERED: FAMOTIDINE 20 MG/2 ML VIAL IVP ONE (20:15)
[2016-10-31] MEDS ORDERED: ONDANSETRON PF 4 MG/2 ML VIAL. IV ONE (20:15)
[2016-10-31] MEDS ORDERED: LIDO:MAALOX:DONNATAL 1:1:1 15 ML SINGLE DOSE SWSW ONE (20:15)
--- NOTE | 2016-10-31 20:17 | PHYS DOC ---
Past Medical History Past Medical History: Hypertension, Migraines, Other Additional Past Medical Histor: ENCEPHALOPATHY,KIDNEY Past Surgical History: Cholecystectomy Alcohol Use: None Drug Use: None Adult General Chief Complaint Chief Complaint: NAUSEA/VOMITING/DIARRHA HPI HPI Patient is a 51 year old female who presents with complaint of abdominal pain, nausea, and vomiting. Patient states that she has been having symptoms over the past week. Patient states that they have not improved and patient is unable to tolerate any oral food or liquids at this time. Patient was recently admitted to the hospital for chest pain where she underwent cardiac catheterization that was negative for significant blockage. Patient states her symptoms started up shortly after that. Patient states that she initially had diarrhea associated with symptoms but currently is not having any diarrhea. Patient denies fevers. Patient rates pain currently as 7 out of 10. Patient states that it is primarily located in her upper abdomen and right upper quadrant. Patient has history of cholecystectomy. Review of Systems Review of Systems Constitutional: Denies fever or chills [] Eyes: Denies change in visual acuity, redness, or eye pain [] HENT: Denies nasal congestion or sore throat [] Respiratory: Denies cough or shortness of breath [] Cardiovascular: Denies chest pain or edema [] GI: Abdominal pain, nausea, vomiting, denies bloody stools or diarrhea [] : Denies dysuria or hematuria [] Musculoskeletal: Denies back pain or joint pain [] Integument: Denies rash or skin lesions [] Neurologic: Denies headache, focal weakness or sensory changes [] Current Medications Current Medications Current Medications Medications (Trade) Dose Ordered Sig/Bam Start Time Stop Time Status Last Admin Dose Admin Famotidine (Pepcid) 20 mg 1X ONCE 10/31/16 20:15 10/31/16 20:20 DC 10/31/16 20:38 20 MG Fentanyl Citrate 50 mcg 50 mcg PRN Q15MIN PRN 10/31/16 20:15 10/31/16 22:38 DC 10/31/16 21:41 50 MCG Multi-Ingredient Mouthwash/Gargle (Gi Cocktail Single Dose) 15 ml 1X ONCE 10/31/16 20:15 10/31/16 20:20 DC 10/31/16 20:15 15 ML Ondansetron HCl (Zofran) 4 mg 1X ONCE 10/31/16 20:15 10/31/16 20:20 DC 10/31/16 20:38 4 MG Sodium Chloride (Iv Sodium Chloride 0.9% 1000ml Bag) 1,000 ml @ 1,000 mls/hr Q1H 10/31/16 20:11 10/31/16 21:10 DC 10/31/16 20:11 1,000 MLS/HR Allergies Allergies Allergies Coded Allergies Type Severity Reaction Last Updated Verified No Known Drug Allergies 01/15/15 No Physical Exam Physical Exam Constitutional: Alert, afebrile, appears ill. [] HENT: Normocephalic, atraumatic, bilateral external ears normal, oropharynx moist, no oral exudates, nose normal. [] Eyes: PERRLA, EOMI, conjunctiva normal, no discharge. [] Neck: Normal range of motion, no tenderness, supple, no stridor. [] Cardiovascular:Heart rate regular rhythm, no murmur [] Lungs & Thorax: Bilateral breath sounds clear to auscultation [] Abdomen: Bowel sounds normal, soft, epigastric and right upper quadrant tenderness to palpation with guarding, no rebound tenderness, no masses, no pulsatile masses. [] Skin: Warm, dry, no erythema, no rash. [] Back: No tenderness, no CVA tenderness. [] Extremities: No tenderness, no cyanosis, no clubbing, ROM intact, no edema. [] Neurologic: Alert and oriented X 3, normal motor function, normal sensory function, no focal deficits noted. [] Current Patient Data Vital Signs Vital Signs Date Time Temp Pulse Resp B/P Pulse Ox O2 Delivery O2 Flow Rate FiO2 10/31/16 21:59 62 18 99/57 96 Room Air 10/31/16 20:06 98.2 98.2 Lab Values Laboratory Tests Test 10/31/16 19:53 10/31/16 20:00 Urine Color Yellow Urine Clarity Clear Urine pH 6.0 Urine Specific [place]obb[place] 1.010 Urine Protein Negativemg/dL (NEG-TRACE) Urine Glucose (UA) Negativemg/dL (NEG) Urine Ketones (Stick) Negativemg/dL (NEG) Urine Blood Negative (NEG) Urine Nitrite Negative (NEG) Urine Bilirubin Negative (NEG) Urine Urobilinogen Dipstick 1.0mg/dL (0.2 mg/dL) Urine Leukocyte Esterase Negative (NEG) Urine RBC Occ/HPF (0-2) Urine WBC Occ/HPF (0-4) Urine Squamous Epithelial Cells Occ/LPF Urine Amorphous Sediment Present/HPF Urine Bacteria Few/HPF (0-FEW) White Blood Count 7.5x10^3/uL (4.0-11.0) # Red Blood Count 5.60x10^6/uL (3.50-5.40) H Hemoglobin 12.3g/dL (12.0-15.5) Hematocrit 38.6% (36.0-47.0) Mean Corpuscular Volume 69fL (79-100) L Mean Corpuscular Hemoglobin 22pg (25-35) L Mean Corpuscular Hemoglobin Concent 32g/dL (31-37) Red Cell Distribution Width 16.8% (11.5-14.5) H Platelet Count 216x10^3/uL (140-400) Neutrophils (%) (Auto) 65% (31-73) Lymphocytes (%) (Auto) 25% (24-48) Monocytes (%) (Auto) 10% (0-9) H Eosinophils (%) (Auto) 0% (0-3) Basophils (%) (Auto) 1% (0-3) Neutrophils # (Auto) 4.9x10^3uL (1.8-7.7) Lymphocytes # (Auto) 1.9x10^3/uL (1.0-4.8) Monocytes # (Auto) 0.7x10^3/uL (0.0-1.1) Eosinophils # (Auto) 0.0x10^3/uL (0.0-0.7) Basophils # (Auto) 0.0x10^3/uL (0.0-0.2) Platelet Estimate Adequate (ADEQUATE) Hypochromasia Slight Anisocytosis Slight Ovalocytes Mod Stomatocytes Occ Schistocytes Occ Sodium Level 132mmol/L (136-145) L Potassium Level 3.2mmol/L (3.5-5.1) L Chloride Level 93mmol/L (98-107) L Carbon Dioxide Level 28mmol/L (21-32) Anion Gap 11 (6-14) Blood Urea Nitrogen 15mg/dL (7-20) Creatinine 0.8mg/dL (0.6-1.0) Estimated GFR (Cockcroft-Gault) 91.1 BUN/Creatinine Ratio 19 (6-20) Glucose Level 101mg/dL (70-99) H Calcium Level 8.5mg/dL (8.5-10.1) Total Bilirubin 0.4mg/dL (0.2-1.0) Aspartate Amino Transferase (AST) 55U/L (15-37) H Alanine Aminotransferase (ALT) 44U/L (14-59) Alkaline Phosphatase 58U/L (46-116) Total Protein 6.5g/dL (6.4-8.2) Albumin 2.8g/dL (3.4-5.0) L Albumin/Globulin Ratio 0.8 (1.0-1.7) L Lipase 103U/L (73-393) Laboratory Tests 10/31/16 20:00 Laboratory Tests 10/31/16 20:00 EKG EKG Interpreted by me: Heart rate 65, left bundle branch block, no acute ST elevations or depressions, no changes from previous EKG on October 18, 2016 [] Radiology/Procedures Radiology/Procedures 3 view acute abdominal series interpreted by me: Nonobstructive bowel gas pattern, no free air under the diaphragm, no pulmonary infiltrates or effusion [ ] Course & Med Decision Making Course & Med Decision Making Pertinent Labs and Imaging studies reviewed. (See chart for details) Patient was given GI cocktail, Zofran, fentanyl and Pepcid. Patient's blood work unremarkable and patient's x-ray imaging does not reveal acute obstruction. I suspect that the patient's cause of pain is likely intraluminal in the stomach and/or upper small intestinal tract. The patient is appropriate for discharge. Patient was provided with prescriptions for Zofran, Protonix, and [place]. Advised follow-up with primary doctor in 2-3 days and follow-up with Dr. Chicas of gastroenterology in 1-2 weeks. Advised return emergency department for any worsening symptoms. Patient was understanding and in agreement with treatment plan. Dragon Disclaimer Dragon Disclaimer This electronic medical record was generated, in whole or in part, using a voice recognition dictation system. Departure Departure Impression: Primary Impression: Epigastric abdominal pain Disposition: HOME, SELF-CARE Condition: IMPROVED Referrals: UNKNOWN PCP NAME (PCP) DARWIN CHICAS MD Patient Instructions: Abdominal Pain (Nonspecific), Nausea and Vomiting Additional Instructions: Follow-up with your primary doctor in 2-3 days. Follow-up with Dr. Chicas of gastroenterology in 1-2 weeks. Return to the emergency department for any worsening symptoms. Scripts Hydrocodone/Apap 5-325 ([place] 5-325 Tablet)1 Each Tablet1-2 Tab PO Q4-6HRS PRN PAIN #20 TAB Prov:YONATHAN ZUÑIGA MD 10/31/16 Ondansetron (Zofran Odt)4 Mg Tab.rapdis1 Tab SL Q8HRS PRN NAUSEA/VOMITING #15 TAB Prov:YONATHAN ZUÑIGA MD 10/31/16 Pantoprazole Sodium (Protonix)40 Mg Tablet.dr1 Tab PO DAILY #30 TAB Ref 0 Prov:YONATHAN ZUÑIGA MD 10/31/16 YONATHAN ZUÑIGA MD Oct 31, 2016 20:17
[2016-10-31 20:21] LABS: BILIRUBIN,URINE NEGATIVE (NEG); GLUCOSE,URINE NEGATIVE (NEG); NITRITE,URINE NEGATIVE (NEG); PROTEIN,URINE NEGATIVE (NEG-TRACE)
[2016-10-31 20:27] LABS: BASO % 1 % (0-3); EOS % 0 % (0-3); HEMATOCRIT 38.6 % (36.0-47.0); HEMOGLOBIN 12.3 g/dL (12.0-15.5); LYMPH # 1.9 x10^3/uL (1.0-4.8); LYMPH % 25 % (24-48); MEAN CORPUSCULAR HEMOGLOBIN 22 pg (25-35); MEAN CORPUSCULAR HGB CONC 32 g/dL (31-37); MEAN CORPUSCULAR VOLUME 69 fL (79-100); MONO % 10 % (0-9); NEUT % 65 % (31-73); PLATELET COUNT 216 x10^3/uL (140-400); RED CELL DISTRIBUTION WIDTH 16.8 % (11.5-14.5); WHITE BLOOD COUNT 7.5 x10^3/uL (4.0-11.0)
[2016-10-31 20:31] LABS: CALCIUM 8.5 mg/dL (8.5-10.1); CREATININE 0.8 mg/dL (0.6-1.0); GFR 91.1; POTASSIUM 3.2 mmol/L (3.5-5.1)
[2016-10-31 20:33] LABS: BACTERIA,URINE FEW /HPF (0-FEW); RBC,URINE OCC /HPF (0-2); SQUAMOUS EPITHELIAL CELL,UR OCC /LPF; WBC,URINE OCC /HPF (0-4)
[2016-10-31 20:36] LABS: ALBUMIN 2.8 g/dL (3.4-5.0); ALBUMIN/GLOBULIN RATIO 0.8 (1.0-1.7); TOTAL BILIRUBIN 0.4 mg/dL (0.2-1.0); TOTAL PROTEIN 6.5 g/dL (6.4-8.2)
[2016-10-31] MEDS: FENTANYL PF 100 MCG/2 ML VIAL. IV PRN ×2 (20:39→21:41)
[2016-10-31 21:05] LABS: ANISOCYTOSIS SLIGHT; OVALOCYTES MOD; PLT ESTIMATE ADEQUATE (ADEQUATE); STOMATOCYTES OCC
[2016-10-31 21:06] LABS: HYPOCHROMIA SLIGHT; SCHISTOCYTES OCC
[2016-10-31] MEDS ORDERED: PANT40TA3 PO (21:49)
[2016-10-31] MEDS ORDERED: ONDA4TAB10 SL (21:49)
[2016-10-31] MEDS ORDERED: HYDR-971 PO (21:52)
[2016-10-31 21:59] VITALS: BP 99/57
--- NOTE | 2016-11-01 08:07 | RAD ---
EXAM: Abdomen acute complete. HISTORY: Pain. COMPARISON: 10/17/2016. FINDINGS: A frontal view of the chest and frontal upright and supine views of the abdomen are obtained. There is no infiltrate, effusion or pneumothorax. The heart is normal in size. There are calcified granulomas. There is stable hilar prominence likely due to prominent central pulmonary gas shadows. There is nonspecific air within small and large bowel. There is no obstruction. There is no free air. There are cholecystectomy clips. There are calcifications overlying the left upper quadrant, likely due to splenic granulomas. There are a few pelvic phleboliths. IMPRESSION: 1. No acute pulmonary finding. 2. Nonobstructive bowel gas pattern.
--- NOTE | 2016-11-01 09:13 | EKG ---
[facility] [address] [place] [address] Test Date: 2016-10-31 Test Time: 20:19:37 Pat Name: COCO CHIANG Department: Room: Gender: F Jumbo Operator: : 1965 Requested By: YONATHAN ZUÑIGA Order Number: [id number] Reading MD: Paloma Alcantar Measurements Intervals [place] Rate: 65 P: 63 WV: 182 QRS: -3 QRSD: 156 T: 146 QT: 426 QTc: 444 Interpretive Statements SINUS RHYTHM LEFT ATRIAL ABNORMALITY LEFTWARD AXIS LEFT BUNDLE BRANCH BLOCK QRS(T) CONTOUR ABNORMALITY CONSISTENT WITH ANTEROSEPTAL INFARCT AGE UNDETERMINED ABNORMAL ECG Electronically Signed On 11-02-2016 19:03:00 CDT by Paloma Alcantar
== END 2016-10-31 22:20 | disposition home or self-care (01) ==
LOC: ER 19:40
DX: R10.13 Epigastric pain (principal); R11.2 Nausea with vomiting, unspecified; R19.7 Diarrhea, unspecified; R10.11 Right upper quadrant pain; I10 Essential (primary) hypertension; G93.40 Encephalopathy, unspecified; G43.909 Migraine, unspecified, not intractable, without status migrainosus; Z90.49 Acquired absence of other specified parts of digestive tract
CPT/HCPCS: 36415; 74022; 80053; 81001; 83690; 85007; 85027; 93005; 96361; 96374; 96375; 96376; 99285; J2405; J3010; J7030; S0028

== ENCOUNTER 2017-10-01 02:54 | Emergency (ER) | payer OTHER ==
[2017-10-01 04:39] LABS: ADD MAN DIFF? NO
[2017-10-01 04:42] LABS: BASO # 0.1 x10^3/uL (0.0-0.2); BASO % 1 % (0-3); EOS % 0 % (0-3); HEMATOCRIT 38.9 % (36.0-47.0); HEMOGLOBIN 12.8 g/dL (12.0-15.5); LYMPH # 0.4 x10^3/uL (1.0-4.8); LYMPH % 7 % (24-48); MEAN CORPUSCULAR HEMOGLOBIN 22 pg (25-35); MEAN CORPUSCULAR HGB CONC 33 g/dL (31-37); MEAN CORPUSCULAR VOLUME 68 fL (79-100); MONO # 0.8 x10^3/uL (0.0-1.1); MONO % 13 % (0-9); NEUT # 4.9 x10^3uL (1.8-7.7); NEUT % 79 % (31-73); PLATELET COUNT 284 x10^3/uL (140-400); RED BLOOD COUNT 5.74 x10^6/uL (3.50-5.40); RED CELL DISTRIBUTION WIDTH 15.7 % (11.5-14.5); WHITE BLOOD COUNT 6.2 x10^3/uL (4.0-11.0)
[2017-10-01] MEDS ORDERED: PROCHLORPERAZINE 10 MG/2 ML VIAL. (04:43)
[2017-10-01] MEDS ORDERED: fentaNYL PF VIAL 100 MCG/2 ML VIAL (04:44)
[2017-10-01] MEDS: IV NORMAL SALINE 1000ML BAG 1,000 ML IV (04:46)
[2017-10-01] MEDS: diphenhydrAMINE 50 MG/ML VIAL IVP (04:46)
[2017-10-01 04:47] LABS: BILIRUBIN,URINE NEGATIVE (NEG); CLARITY,URINE CLEAR; COLOR,URINE YELLOW; GLUCOSE,URINE NEGATIVE (NEG); NITRITE,URINE NEGATIVE (NEG); PROTEIN,URINE NEGATIVE (NEG-TRACE)
[2017-10-01] MEDS: fentaNYL PF VIAL 100 MCG/2 ML VIAL IV (04:48)
[2017-10-01] MEDS: PROCHLORPERAZINE 10 MG/2 ML VIAL. IV (04:49)
[2017-10-01 04:53] LABS: ANION GAP 9 (6-14); BLOOD UREA NITROGEN 9 mg/dL (7-20); CALCIUM 8.5 mg/dL (8.5-10.1); CARBON DIOXIDE 27 mmol/L (21-32); CHLORIDE 96 mmol/L (98-107); CREATININE 0.8 mg/dL (0.6-1.0); GFR 90.8; GLUCOSE 107 mg/dL (70-99); MAGNESIUM 1.8 mg/dL (1.8-2.4); POTASSIUM 3.3 mmol/L (3.5-5.1); SODIUM 132 mmol/L (136-145)
[2017-10-01 05:03] LABS: BACTERIA,URINE FEW /HPF (0-FEW); SQUAMOUS EPITHELIAL CELL,UR FEW /LPF; WBC,URINE OCC /HPF (0-4)
[2017-10-01 05:04] LABS: ALBUMIN 2.8 g/dL (3.4-5.0); ALK PHOS 71 U/L (46-116); ALT (SGPT) 16 U/L (14-59); AST (SGOT) 18 U/L (15-37); DIRECT BILIRUBIN 0.1 mg/dL (0.0-0.2); TOTAL BILIRUBIN 0.4 mg/dL (0.2-1.0)
[2017-10-01 05:55] LABS: INFLUENZA A PATIENT NEGATIVE (NEGATIVE); INFLUENZA B PATIENT NEGATIVE (NEGATIVE); OBC FLU VALID
[2017-10-01 08:46] LABS: NEGATIVE OBC STREP NEG; POSITIVE OBC STREP POS
[2017-10-01 09:07] LABS: ANISOCYTOSIS SLIGHT; HYPOCHROMIA MOD; MICROCYTOSIS MARKED; PLT ESTIMATE ADEQUATE (ADEQUATE); POIKILOCYTOSIS PRESENT
== END 2017-10-01 06:20 | disposition home or self-care (01) ==
LOC: ER 02:54
DX: R51 Headache (principal); J40 Bronchitis, not specified as acute or chronic; I10 Essential (primary) hypertension; G43.909 Migraine, unspecified, not intractable, without status migrainosus; F17.200 Nicotine dependence, unspecified, uncomplicated
CPT/HCPCS: 36415; 71045; 80048; 80076; 81001; 83735; 85025; 87070; 87804; 87804-59; 87880; 96361; 96374; 96375; 99285-25; J0780; J1200; J3010; J7030

== ENCOUNTER 2018-02-12 09:23 | Emergency (ER) | payer SELFPAY, OTHER ==
[2018-02-12 09:51] LABS: ADD MAN DIFF? NO
[2018-02-12 09:54] LABS: BASO # 0.1 x10^3/uL (0.0-0.2); BASO % 1 % (0-3); EOS # 0.1 x10^3/uL (0.0-0.7); EOS % 1 % (0-3); HEMATOCRIT 38.4 % (36.0-47.0); HEMOGLOBIN 12.6 g/dL (12.0-15.5); LYMPH # 1.8 x10^3/uL (1.0-4.8); LYMPH % 41 % (24-48); MEAN CORPUSCULAR HEMOGLOBIN 23 pg (25-35); MEAN CORPUSCULAR HGB CONC 33 g/dL (31-37); MEAN CORPUSCULAR VOLUME 69 fL (79-100); MONO # 0.5 x10^3/uL (0.0-1.1); MONO % 12 % (0-9); NEUT % 45 % (31-73); PLATELET COUNT 279 x10^3/uL (140-400); RED BLOOD COUNT 5.55 x10^6/uL (3.50-5.40); RED CELL DISTRIBUTION WIDTH 16.6 % (11.5-14.5); WHITE BLOOD COUNT 4.5 x10^3/uL (4.0-11.0)
[2018-02-12 09:58] LABS: ANION GAP 8 (6-14); BLOOD UREA NITROGEN 7 mg/dL (7-20); BUN/CREATININE RATIO 10 (6-20); CARBON DIOXIDE 27 mmol/L (21-32); CHLORIDE 102 mmol/L (98-107); CREATININE 0.7 mg/dL (0.6-1.0); GFR 105.9; GLUCOSE 83 mg/dL (70-99); POTASSIUM 3.8 mmol/L (3.5-5.1); SODIUM 137 mmol/L (136-145)
[2018-02-12] MEDS: ONDANSETRON PF 4 MG/2 ML VIAL. IV (09:59)
[2018-02-12] MEDS: LIDO:MAALOX 1:1 20 ML SINGLE DOSE. SWSW (09:59)
[2018-02-12] MEDS: FAMOTIDINE 20 MG/2 ML VIAL IVP (10:00)
[2018-02-12] MEDS: fentaNYL PF VIAL 100 MCG/2 ML VIAL IV (10:02)
[2018-02-12 10:04] LABS: ALBUMIN 3.5 g/dL (3.4-5.0); ALBUMIN/GLOBULIN RATIO 0.9 (1.0-1.7); ALK PHOS 91 U/L (46-116); ALT (SGPT) 16 U/L (14-59); AST (SGOT) 16 U/L (15-37); LIPASE 294 U/L (73-393); TOTAL BILIRUBIN 0.5 mg/dL (0.2-1.0); TOTAL PROTEIN 7.5 g/dL (6.4-8.2)
[2018-02-12 10:09] LABS: TROPONINI < 0.017 ng/mL (0.000-0.055)
[2018-02-12 11:11] LABS: ANISOCYTOSIS PRESENT; HYPOCHROMIA PRESENT; MICROCYTOSIS PRESENT; PLT ESTIMATE ADEQUATE (ADEQUATE)
[2018-02-12 11:12] LABS: TARGET CELLS OCC
[2018-02-12] MEDS: HYDROcodone/APAP 5/325MG 1 TAB TABLET PO (12:12)
== END 2018-02-12 12:14 | disposition home or self-care (01) ==
LOC: ER 09:23
DX: R10.13 Epigastric pain (principal); I10 Essential (primary) hypertension; G43.909 Migraine, unspecified, not intractable, without status migrainosus; Z90.49 Acquired absence of other specified parts of digestive tract
CPT/HCPCS: 36415; 71045; 80053; 83690; 84484; 85025; 93005; 96374; 96375; 99285-25; J2405; J3010; S0028

== ENCOUNTER → 2020-06-01 | Outpatient (CLI) | payer OTHER ==
[2018-02-12 11:30] VITALS: BP 176/91
[~2020-06-01] MED LIST changes: +HYDR-2145 PO; -HYDR-2762 PO; +HYDR-2765 PO; +HYDR-3164 PO; -HYDR25TA9 PO; +NAPR-683 PO; -NAPR500T PO; +OMEP40CA45 PO; +ONDA4TAB10 SL; +OSEL75CA PO; +PANT40TA77 PO
--- NOTE | 2020-06-01 12:40 | RAD ---
EXAM: Lumbar spine, 2 views. HISTORY: Pain. COMPARISON: None. FINDINGS: 2 views of the lumbar spine are obtained. There is no listhesis. The vertebral bodies are normal in height and the disc spaces are preserved. There is facet arthropathy at the lower lumbar levels. There are incidental cholecystectomy clips. IMPRESSION: 1. Degenerative facet arthropathy at the lower lumbar levels. 2. No acute osseous finding. Electronically signed by: Bonnie Wang MD (06/01/2020 12:37 PM) [id number]
== END ==
LOC: RAD 09:17
PROVIDERS: ATTEND Anesthesiology Pain Medicine
DX: M47.816 Spondylosis without myelopathy or radiculopathy, lumbar region (principal); Z90.49 Acquired absence of other specified parts of digestive tract
CPT/HCPCS: 72100

== ENCOUNTER 2020-07-09 23:53 | Emergency (ER) | payer SELFPAY ==
[~2020-07-09] VITALS: Ht 165.1 cm; Wt 77.3 kg
--- NOTE | 2020-07-10 00:03 | ED.ADGEN ---
Past Medical History Past Medical History: Hypertension, Migraines, Other Additional Past Medical Histor: ENCEPHALOPATHY,KIDNEY Past Surgical History: Cholecystectomy Smoking Status: Current Every Day Smoker Alcohol Use: None Drug Use: None General Adult EDM: Chief Complaint: ABDOMINAL PAIN HPI: HPI: Patient is a 54 year old female coming from EMS for epigastric pain. Describes the pain gnawing and radiating to the back. Started when she is sitting watching TV. Prior to that she ate a chicken sandwich couple hours earlier. Denies any nausea or vomiting. Has had an episode of this in the past but does not remember what the outcome was. Patient is denies any new medications, alcohol use, spicy foods. Patient takes 325 mg aspirin daily, denies any chronic use of any other NSAIDs. Last bowel movement today was normal. Has had a cholecystectomy for cholelithiasis in the past. Per chart review patient was seen for very similar symptoms about 2 years ago and diagnosed with gastritis after work-up. Review of Systems: Review of Systems: Constitutional: Denies fever or chills. [] Eyes: Denies change in visual acuity. [] HENT: Denies nasal congestion or sore throat. [] Respiratory: Denies cough or shortness of breath. [] Cardiovascular: Denies chest pain or edema. [] GI: Epigastric abdominal pain, denies, nausea, vomiting, bloody stools or diarrhea. [] : Denies dysuria. [] Musculoskeletal: Denies back pain or joint pain. [] Integument: Denies rash. [] Neurologic: Denies headache, focal weakness or sensory changes. [] Endocrine: Denies polyuria or polydipsia. [] Lymphatic: Denies swollen glands. [] Psychiatric: Denies depression or anxiety. [] Current Medications: Current Medications Medications (Trade) Dose Ordered Sig/Bam Start Time Stop Time Status Last Admin Dose Admin Famotidine (Pepcid Vial) 20 mg STK-MED ONCE 07/10/20 03:21 07/10/20 04:16 DC Multi-Ingredient Mouthwash/Gargle (Gi Cocktail) 20 ml 1X ONCE 07/10/20 00:30 07/10/20 00:31 DC 07/10/20 00:46 20 ML Allergies: Allergies: Allergies Coded Allergies Type Severity Reaction Last Updated Verified No Known Drug Allergies 01/15/15 No Physical Exam: PE: Constitutional: Well developed, well nourished, mild distress, non-toxic appearance. [] HENT: Normocephalic, atraumatic, bilateral external ears normal, oropharynx moist, no oral exudates, nose normal. [] Eyes: PERRLA, EOMI, conjunctiva normal, no discharge. [] Neck: Normal range of motion, no tenderness, supple, no stridor. [] Cardiovascular:Heart rate regular rhythm, no murmur [] Lungs & Thorax: Bilateral breath sounds clear to auscultation [] Abdomen: Soft, epigastric tenderness, no rebound or guarding Skin: Warm, dry, no erythema, no rash. [] Back: No tenderness, no CVA tenderness. [] Extremities: No tenderness, no cyanosis, no clubbing, ROM intact, no edema. [] Neurologic: Alert and oriented X 3, normal motor function, normal sensory function, no focal deficits noted. [] Psychologic: Affect normal, judgement normal, mood normal. [] Current Patient Data: Labs: Laboratory Tests Test 07/10/20 00:20 White Blood Count 7.1 x10^3/uL (4.0-11.0) Red Blood Count 5.11 x10^6/uL (3.50-5.40) Hemoglobin 12.0 g/dL (12.0-15.5) Hematocrit 36.6 % (36.0-47.0) Mean Corpuscular Volume 72 fL (79-100) L Mean Corpuscular Hemoglobin 24 pg (25-35) L Mean Corpuscular Hemoglobin Concent 33 g/dL (31-37) Red Cell Distribution Width 16.9 % (11.5-14.5) H Platelet Count 221 x10^3/uL (140-400) Neutrophils (%) (Auto) 52 % (31-73) Lymphocytes (%) (Auto) 35 % (24-48) Monocytes (%) (Auto) 11 % (0-9) H Eosinophils (%) (Auto) 1 % (0-3) Basophils (%) (Auto) 2 % (0-3) Neutrophils # (Auto) 3.7 x10^3/uL (1.8-7.7) Lymphocytes # (Auto) 2.5 x10^3/uL (1.0-4.8) Monocytes # (Auto) 0.8 x10^3/uL (0.0-1.1) Eosinophils # (Auto) 0.1 x10^3/uL (0.0-0.7) Basophils # (Auto) 0.1 x10^3/uL (0.0-0.2) Platelet Estimate Adequate (ADEQUATE) Hypochromasia Slight Microcytosis Mod Sodium Level 136 mmol/L (136-145) Potassium Level 3.1 mmol/L (3.5-5.1) L Chloride Level 101 mmol/L (98-107) Carbon Dioxide Level 27 mmol/L (21-32) Anion Gap 8 (6-14) Blood Urea Nitrogen 12 mg/dL (7-20) Creatinine 1.0 mg/dL (0.6-1.0) Estimated GFR (Cockcroft-Gault) 69.7 BUN/Creatinine Ratio 12 (6-20) Glucose Level 117 mg/dL (70-99) H Calcium Level 8.6 mg/dL (8.5-10.1) Total Bilirubin 0.2 mg/dL (0.2-1.0) Aspartate Amino Transferase (AST) 27 U/L (15-37) Alanine Aminotransferase (ALT) 28 U/L (14-59) Alkaline Phosphatase 78 U/L (46-116) Troponin I Quantitative < 0.017 ng/mL (0.000-0.055) Total Protein 6.4 g/dL (6.4-8.2) Albumin 3.0 g/dL (3.4-5.0) L Albumin/Globulin Ratio 0.9 (1.0-1.7) L Lipase 72 U/L (73-393) L Laboratory Tests 07/10/20 00:20 Laboratory Tests 07/10/20 00:20 Vital Signs: Vital Signs Date Time Temp Pulse Resp B/P (MAP) Pulse Ox O2 Delivery O2 Flow Rate FiO2 07/10/20 00:15 97.9 58 16 173/87 (115) 100 97.9 EKG: EKG: Sinus rhythm, heart rate 53, leftward axis deviation, left bundle branch block, no ischemic changes, left bundle block present in previous ECG [] Heart Score: Risk Factors: Risk Factors: DM, Current or recent (<one month) smoker, HTN, HLP, family history of CAD, obesity. Risk Scores: Score 0 - 3: 2.5% MACE over next 6 weeks - Discharge Home Score 4 - 6: 20.3% MACE over next 6 weeks - Admit for Clinical Observation Score 7 - 10: 72.7% MACE over next 6 weeks - Early Invasive Strategies Radiology/Procedures: Radiology/Procedures: [] Impression: Pain improved with GI cocktail Course & Med Decision Making: Course & Med Decision Making Pertinent Labs and Imaging studies reviewed. (See chart for details) [] Dragon Disclaimer: Dragon Disclaimer: This electronic medical record was generated, in whole or in part, using a voice recognition dictation system. Departure Departure Impression: Primary Impression: Gastritis Disposition: 01 DC HOME SELF CARE/HOMELESS Condition: IMPROVED Referrals: [facility] (PCP) Patient Instructions: Gastritis, Adult Additional Instructions: Follow-up with your primary care for gastroenterology referral, avoid spicy foods and alcohol. Take medications as prescribed Scripts Famotidine (FAMOTIDINE) 20 Mg Tablet 20 MG PO BID for 30 Days, #60 TAB Prov: MARY KAY CRISTINA MD 07/10/20 Sucralfate (CARAFATE) 1 Gm Tablet 1 TAB PO QID for gastris for 30 Days, #120 TAB 0 Refills Prov: MARY KAY CRISTINA MD 07/10/20 MARY KAY CRISTINA MD Jul 10, 2020 00:02
[2020-07-10 00:30] LABS: BASO % 2 % (0-3); EOS % 1 % (0-3); HEMATOCRIT 36.6 % (36.0-47.0); LYMPH % 35 % (24-48); MEAN CORPUSCULAR HEMOGLOBIN 24 pg (25-35); MEAN CORPUSCULAR HGB CONC 33 g/dL (31-37); MEAN CORPUSCULAR VOLUME 72 fL (79-100); MONO % 11 % (0-9); NEUT % 52 % (31-73); PLATELET COUNT 221 x10^3/uL (140-400); RED BLOOD COUNT 5.11 x10^6/uL (3.50-5.40); RED CELL DISTRIBUTION WIDTH 16.9 % (11.5-14.5); WHITE BLOOD COUNT 7.1 x10^3/uL (4.0-11.0)
[2020-07-10] MEDS ORDERED: LIDO:MAALOX 1:1 20 ML SINGLE DOSE. SWSW ONE (00:30)
[2020-07-10 00:31] LABS: BASO # 0.1 x10^3/uL (0.0-0.2); EOS # 0.1 x10^3/uL (0.0-0.7); LYMPH # 2.5 x10^3/uL (1.0-4.8); MONO # 0.8 x10^3/uL (0.0-1.1); NEUT # 3.7 x10^3/uL (1.8-7.7)
[2020-07-10 00:34] LABS: HYPOCHROMIA SLIGHT; MICROCYTOSIS MOD; PLT ESTIMATE ADEQUATE (ADEQUATE)
[2020-07-10 00:43] LABS: ALBUMIN/GLOBULIN RATIO 0.9 (1.0-1.7); CALCIUM 8.6 mg/dL (8.5-10.1); GFR 69.7; TOTAL PROTEIN 6.4 g/dL (6.4-8.2)
[2020-07-10 00:44] LABS: POTASSIUM 3.1 mmol/L (3.5-5.1); TOTAL BILIRUBIN 0.2 mg/dL (0.2-1.0)
[2020-07-10] MEDS ORDERED: FAMOTIDINE 20 MG/2 ML VIAL ONE (03:21)
[2020-07-10] MEDS ORDERED: LIDO:MAALOX 1:1 20 ML SINGLE DOSE. PO ONE (03:30)
[2020-07-10] MEDS ORDERED: FAMOTIDINE 20 MG TABLET. PO ONE (03:30)
[2020-07-10] MEDS ORDERED: methylPREDNISolone SOD SUCC PF 125 MG/2 ML VIAL. IM ONE (04:00)
[2020-07-10] MEDS ORDERED: KETOROLAC 60 MG/2 ML VIAL. IM ONE (04:00)
[2020-07-10] MEDS ORDERED: FAMO20TA5 PO (05:13)
[2020-07-10] MEDS ORDERED: SUCR1TAB35 PO (05:13)
[2020-07-10 05:21] LABS: BACTERIA,URINE FEW /HPF (0-FEW); BILIRUBIN,URINE NEGATIVE (NEG); CLARITY,URINE CLEAR; COLOR,URINE YELLOW; NITRITE,URINE NEGATIVE (NEG); PH,URINE 6.5 (<5.0-8.0); PROTEIN,URINE NEGATIVE (NEG-TRACE); WBC,URINE RARE /HPF (0-4)
[2020-07-10 06:14] VITALS: BP 176/77
--- NOTE | 2020-07-10 10:45 | EKG ---
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
== END 2020-07-10 08:19 | disposition home or self-care (01) ==
LOC: ER 23:53
DX: R10.13 Epigastric pain (principal); G43.909 Migraine, unspecified, not intractable, without status migrainosus; I10 Essential (primary) hypertension; Z90.49 Acquired absence of other specified parts of digestive tract; F17.200 Nicotine dependence, unspecified, uncomplicated
CPT/HCPCS: 36415; 80053; 81001; 83690; 84484; 85025; 93005; 99285-25